=== PATIENT | male | born 1960 | race Caucasian/White ===

== ENCOUNTER 2020-02-26 06:35 | Outpatient (REF) | payer BC, SELFPAY ==
[2020-02-26 11:21] LABS: MANUAL DIFF FLAG NO
[2020-02-26 11:27] LABS: Basophils Percent Auto 0.8 % (0-2); Eosinophils Absolute Auto 0.1 X10*3/uL (0.0-0.4); Eosinophils Percent Auto 1.8 % (0-4); Hematocrit 42.2 % (42-52); Hemoglobin 14.6 g/dl (14.0-18.0); Imm Gran Abs Auto 0.04 X10*3/uL (0.00-0.03); Imm Gran Pct Auto 0.8 % (0.0-0.4); Lymphocytes Absolute Auto 1.5 X10*3/uL (1.2-4.9); Lymphocytes Percent Auto 29.3 % (20-40); Mean Corpuscular HGB Conc 34.6 g/dl (31.0-36.0); Mean Corpuscular Hemoglobin 32.2 pg (27.0-33.0); Monocytes Absolute Auto 0.4 X10*3/uL (0.1-1.2); Monocytes Percent Auto 8.1 % (2-11); Neutrophils Percent Auto 59.2 % (45-73); Platelet Count 184 X10*3/uL (160-400); Red Blood Count 4.54 X10*6/uL (4.60-5.80); Red Cell Distribution Width 12.5 % (11.0-16.0); White Blood Count 5.1 X10*3/uL (4.8-10.8)
[2020-02-26 11:45] LABS: Glucose Urine UA NEG (NEG); Leukocyte Esterase Urine NEG (NEG); Nitrite Urine NEG (NEG); PH 6.5 (5.0-8.0); Specific Gravity - Urine 1.025 (1.005-1.025); Urine Blood NEG (NEG); Urine Ketones NEG (NEG); Urine Protein NEG (NEG-TRACE)
[2020-02-26 11:47] LABS: Appearance Urine CLEAR; Color Urine YELLOW
[2020-02-26 12:06] LABS: Alanine Aminotransferase 55 U/L (0-40); Albumin Level 4.3 g/dL (3.5-5.0); Alkaline Phosphatase 62 U/L (39-117); Aspartate Amino Transferase 30 U/L (5-37); Bilirubin Total 0.8 mg/dL (0.0-1.0); Blood Urea Nitrogen 17 mg/dL (9-16); Calcium 9.1 mg/dL (8.4-10.2); Cholesterol 174 mg/dL; Estimated Glomerular Filt Rate > 60; Glucose Fasting 100 mg/dL (60-99); HDL Cholesterol 27 mg/dL; LDL Cholesterol Calculated 79 mg/dl; Total Protein 6.9 g/dL (6.5-8.0); Triglycerides 340 mg/dL
[2020-02-26 12:14] LABS: Anion Gap 12 (12-20); Carbon Dioxide 28 mmol/L (22-29); Chloride 105 mmol/L (96-108); Potassium 3.9 mmol/l (3.3-5.1); Sodium 141 mmol/L (135-145)
[2020-02-26 12:21] LABS: Thyroid Stimulating Hormone 1.18 mIU/mL (0.32-4.0)
[2020-02-26 12:28] LABS: RBC Urine 0 /HPF (0); WBC Urine 0-2 /HPF (0-4)
== END 2020-02-26 06:36 | disposition home or self-care (01) ==
LOC: HO.HMGCLDS 06:35
PROVIDERS: PCP Internal Medicine; Visit Provider Internal Medicine
DX: Z00.00 Encounter for general adult medical examination without abnormal findings (principal); I10 Essential (primary) hypertension; E78.00 Pure hypercholesterolemia, unspecified; E66.09 Other obesity due to excess calories; Z68.31 Body mass index [BMI] 31.0-31.9, adult
CPT/HCPCS: 36415; 80053; 80061; 81001; 84153; 84443; 85025

== ENCOUNTER 2022-03-26 09:47 | Day surgery (SDC) | payer BC, SELFPAY ==
[2022-03-26 10:19] VITALS: BMI 33.5
[2022-03-26 10:31] VITALS: BP 155/96; PULSE 65; RESP 16; TEMP 36.4; O2SAT 95
[2022-03-26 11:45] VITALS: BP 138/79; PULSE 74; RESP 15; TEMP 36.1; O2SAT 95
--- NOTE | 2022-03-26 11:48 | P.BOP_ITS ---
Brief Operative Note Date of Service: 03/26/22 Pre-op diagnosis: Screening Post-op diagnosis: other (Colon polyp) Procedure: Colonoscopy to the cecum with biopsy and removal of polyp Surgeon: Noe Cunha Anesthesia: MAC Was an Child Protective Investigator used for this Procedure?: No Estimated blood loss (mL): 2.0 Pathology: other (A. Cecal polyp) Condition: stable Disposition: PACU
[2022-03-26 12:00] VITALS: BP 132/82; PULSE 72; RESP 18; TEMP 36.1; O2SAT 98
--- NOTE | 2022-03-26 23:38 | OP_ITS ---
SURGEON: Noe Cunha MD INDICATIONS: Patient presents for evaluation of personal history of tubular adenoma of the colon and need for colorectal cancer screening. Full consent was obtained from him for this, including risks of bleeding and perforation. PREOPERATIVE DIAGNOSIS: Colorectal cancer screening and personal history of tubular adenoma of the colon. POSTOPERATIVE DIAGNOSIS: Colorectal cancer screening and personal history of tubular adenoma of the colon, small colon polyp, diverticulosis, and internal hemorrhoids. PROCEDURE PERFORMED: Colonoscopy to cecum with biopsy and removal of polyp. ESTIMATED BLOOD LOSS: COMPLICATIONS: ANESTHESIA: Preop medications used, monitored anesthesia care. ASSISTANTS: SPECIMENS: DESCRIPTION OF PROCEDURE: The patient was placed in the left lateral decubitus position. A digital rectal exam revealed no abnormalities. An [employer] video pediatric colonoscope was entered into the rectum and advanced easily to the cecum. Once in the cecum, I did identify normal-appearing cecal pouch other than an approximately 3 or 4 mm polyp, which was biopsied and completely removed with cold biopsy forceps. The remainder of the cecum including the appendiceal orifice, was well visualized and appeared normal. The ileocecal valve appeared normal. The scope was slowly withdrawn assessing all mucosal surfaces carefully. Preparation was excellent. I did not visualize any sign of other polyps, colitis, or angiodysplasia. There was a moderate amount of diverticulosis in the sigmoid and descending colon. In the rectum, scope was retroflexed, visualizing small internal hemorrhoids, but no other pathology. The rectal mucosa appeared normal. The scope was straightened and withdrawn from the patient. He tolerated the procedure well and was returned to the recovery area in stable condition. IMPRESSION: 1. Small colon polyp. 2. Diverticulosis. 3. Internal hemorrhoids. PLAN: The results of the biopsies will be checked. I would recommend a repeat colonoscopy in 5 years for further screening purposes. He will otherwise see me on a p.r.n. basis. MD BOB Hernandez/[place] / [id number]
== END 2022-03-26 12:32 | disposition home or self-care (01) ==
PROVIDERS: PCP Internal Medicine; Visit Provider Internal Medicine
PROC: 0DJD8ZZ Inspection of Lower Intestinal Tract, Via Natural or Artificial Opening Endoscopic (ICD-10-PCS; CPT 45378; principal; 2022-03-26 11:50)
DX: Z12.11 Encounter for screening for malignant neoplasm of colon (principal); Z86.010 Personal history of colon polyps; D12.0 Benign neoplasm of cecum; K57.30 Diverticulosis of large intestine without perforation or abscess without bleeding; K64.8 Other hemorrhoids; I10 Essential (primary) hypertension; E78.5 Hyperlipidemia, unspecified; Z87.442 Personal history of urinary calculi; Z79.899 Other long term (current) drug therapy
CPT/HCPCS: 45380; 88305

== ENCOUNTER 2022-05-08 06:33 | Outpatient (REF) | payer BC, SELFPAY ==
[2022-05-08 11:52] LABS: MANUAL DIFF FLAG NO
[2022-05-08 12:23] LABS: Basophils Percent Auto 0.5 % (0-2); Eosinophils Absolute Auto 0.1 X10*3/uL (0.0-0.4); Hematocrit 43.9 % (42.0-52.0); Hemoglobin 14.8 g/dl (14.0-18.0); Imm Gran Abs Auto 0.04 X10*3/uL (0.00-0.03); Imm Gran Pct Auto 0.7 % (0.0-0.4); Lymphocytes Absolute Auto 1.6 X10*3/uL (1.2-4.9); Mean Corpuscular HGB Conc 33.7 g/dl (31.0-36.0); Mean Corpuscular Hemoglobin 31.8 pg (27.0-33.0); Mean Corpuscular Volume 94.2 fL (80.0-98.0); Mean Platelet Volume 10.6 fL (9.4-12.4); Monocytes Absolute Auto 0.4 X10*3/uL (0.1-1.2); Monocytes Percent Auto 7.7 % (2-11); Neutrophils Absolute Auto 3.3 x10*3/uL (2.0-8.3); Neutrophils Percent Auto 60.1 % (45-73); Platelet Count 194 X10*3/uL (160-400); Red Blood Count 4.66 X10*6/uL (4.60-5.80); Red Cell Distribution Width 13.1 % (11.0-16.0); White Blood Count 5.5 X10*3/uL (4.8-10.8)
[2022-05-08 12:52] LABS: Alanine Aminotransferase 57 U/L (0-40); Albumin Level 4.3 g/dL (3.5-5.0); Alkaline Phosphatase 71 U/L (39-117); Anion Gap 10 (12-20); Aspartate Amino Transferase 35 U/L (5-37); Bilirubin Total 0.9 mg/dL (0.0-1.0); Blood Urea Nitrogen 15 mg/dL (9-16); Calcium 9.1 mg/dL (8.4-10.2); Carbon Dioxide 28 mmol/L (22-29); Chloride 106 mmol/L (96-108); Cholesterol 139 mg/dL; Estimated Glomerular Filt Rate > 60; Glucose Fasting 140 mg/dL (60-99); HDL Cholesterol 23 mg/dL; LDL Cholesterol Calculated 44 mg/dl; PSA,Total (Free>4and<10) 2.11 ng/mL (0.00-4.00); Potassium 4.3 mmol/L (3.3-5.1); Sodium 140 mmol/L (135-145); Thyroid Stimulating Hormone 0.81 uIU/mL (0.32-4.0); Total Protein 6.9 g/dL (6.5-8.0); Triglycerides 361 mg/dL
== END 2022-05-08 06:34 | disposition home or self-care (01) ==
LOC: HO.HMGCLDS 06:33
PROVIDERS: PCP Internal Medicine; Visit Provider Internal Medicine
DX: Z00.00 Encounter for general adult medical examination without abnormal findings (principal); Z12.6 Encounter for screening for malignant neoplasm of bladder; E78.00 Pure hypercholesterolemia, unspecified; I10 Essential (primary) hypertension; E66.09 Other obesity due to excess calories
CPT/HCPCS: 36415; 80053; 80061; 82306; 84153; 84443; 85025

== ENCOUNTER → 2022-07-23 10:47 | Outpatient (BNVA) | payer BC, SELFPAY | PROVIDERS: PCP Internal Medicine; Referring Provider Internal Medicine; Visit Provider Internal Medicine | DX: R94.31 Abnormal electrocardiogram [ECG] [EKG] (principal); I10 Essential (primary) hypertension; E78.00 Pure hypercholesterolemia, unspecified | CPT/HCPCS: 93005 ==

== ENCOUNTER 2022-08-03 06:25 | Outpatient (REF) | payer BC, SELFPAY ==
[2022-08-03 12:16] LABS: Anion Gap 14 (12-20); Blood Urea Nitrogen 21 mg/dL (9-16); Carbon Dioxide 24 mmol/L (22-29); Chloride 105 mmol/L (96-108); Estimated Glomerular Filt Rate > 60; Glucose Random 90 mg/dL (60-115); Sodium 139 mmol/L (135-145)
== END 2022-08-03 06:26 | disposition home or self-care (01) ==
LOC: HO.HMGCLDS 06:25
PROVIDERS: PCP Internal Medicine; Visit Provider Internal Medicine
DX: I10 Essential (primary) hypertension (principal)
CPT/HCPCS: 36415; 80048

== ENCOUNTER → 2022-08-06 07:36 | Outpatient (REF) | payer BC, SELFPAY ==
--- NOTE | 2022-08-06 07:59 | CA_ITS ---
Transthoracic Echocardiogram Patient (Last, First, Middle): Domenic Guillen C Gender: Male Date of : 1960 Age: 61 Procedure Date: 08/06/2022 Procedure Type: Transthoracic Echocardiogram Location: OP Height: 180. cm Weight: 102.51 kg BSA: 2.22 m2 Heart Rate: 57 bpm BP: 130 / 80 mmHg Sales And Service Specialist: CORNELL Referring MD: Milan Pastor MD Symptoms: R94.31 - Abnormal electrocardiogram [ECG] [EKG] Study Quality: Adequate ECG Rhythm: Sinus Conclusions: - The left ventricular systolic function is normal. The visually estimated ejection fraction is between 65-70%. - Vpyt-hf-iopabaub left ventricular hypertrophy; mostly concentric but more prominent in the septum. - No obvious valvular pathology seen on this study. Findings Left Ventricle Normal left ventricular cavity size. The left ventricular systolic function is normal. The visually estimated ejection fraction is between 65-70%. There is no evidence of regional wall motion abnormalities. Diastolic function is normal for age. Otub-gd-nywufgdt left ventricular hypertrophy; mostly concentric but more prominent in the septum. Right Ventricle Normal right ventricular cavity size and systolic function. Atria Both atria are normal in size. Aortic Valve There is a normal trileaflet aortic valve. There is mild calcification of the aortic valve. There is no aortic valve stenosis. There is no aortic valve regurgitation. Mitral Valve The mitral valve appears normal. There is no mitral valve regurgitation. There is no mitral valve stenosis. Pulmonic Valve The pulmonic valve is likely normal. Tricuspid Valve Normal tricuspid valve structure. There is trace tricuspid valve regurgitation. There is no evidence of pulmonary hypertension. Great Vessels The asc aorta is normal in size. Venous The inferior vena cava was not well visualized. The inferior vena cava is normal in size. Pericardium/Pleural There is no evidence of pericardial effusion. Prior Study Comparison No prior study available for comparison. Recommendations, Care & Conclusions No obvious valvular pathology seen on this study. Measurements 2D Linear Measurements IVSd: 1.62 0.6-0.9/0.6-1.0 cm LVIDd: 5.10 3.9-5.3/4.2-5.9 cm LVIDd Index: 2.30 2.4-3.2/2.2-3.1 cm/m2 LVIDs: 2.58 2.0-3.6 cm LVPWd: 1.19 0.7-1.1 cm LA Diam: 3.80 2.7-3.8/3.0-4.0 cm LAIDs Index: 1.71 1.5-2.3 cm/m2 LV Mass: 376.75 67-162/88-224 g LV Mass Index: 169.71 43-95/49-115 g/m2 LVOT Diam: 2.10 3.0+(-)1.3 cm 2D Systolic Function EF 4C: 61.00 >55% EF 2C: 59.20 >55% EF BiP: 60.00 >55% Mitral Valve MV Pk E: 0.57 MV PK A: 0.59 MV Decel Time: 330.00 E/A: 1.00 E'Lateral: 7.07 E'Medial: 5.55 E/E' Med: 10.20 E/E' Lat: 8.00 PHT: 97.00 MVA PHT: 2.27 Decel Davis: 1.71 Aortic Valve AoV Pk Sesar: 1.45 AoV Mn Sesar: 1.02 AoV VTI: 0.28 AoV Pk Grad: 8.00 Aov Mn Grad: 5.00 MANPREET Cont.VTI: 2.96 LVOT LVOT Pk Sesar: 1.37 LVOT Mn Sesar: 0.88 LVOT VTI: 0.24 LVOT Pk Grad: 8.00 LVOT Mn Grad: 4.00 LVOT Diam: 2.10 LVOT Area: 3.46 Diastolic Function MV Pk E: 0.57 MV Pk A: 0.59 E/A: 1.00 E'Medial: 5.55 E/E' Med: 10.20 E' Laterial: 7.07 E/E' Lat: 8.00 Right Ventricle TAPSE (mm): 19.80 TVS' Sesar: 16.40 Tricuspid Valve TR Pk Sesar: 1.59 TR Pk Grad: 10.00 Great Vessels Aorta Sinus of Valsalva: 3.60 2.0-3.5 cm Ao Asc: 3.70 2.1-3.4 cm Pulmonary Valve PV Pk Sesar: 1.24 Peak PV Grad: 6.00 Updated in Other Vendor System with Status of Final Milan Pastor MD electronically signed on 08/06/2022 11:59:11 AM with status of Final
== END ==
LOC: HO.CARD 07:36
PROVIDERS: Visit Provider Internal Medicine
DX: I10 Essential (primary) hypertension (principal); E78.00 Pure hypercholesterolemia, unspecified; R94.31 Abnormal electrocardiogram [ECG] [EKG]
CPT/HCPCS: 93306

== ENCOUNTER → 2022-11-01 10:53 | Outpatient (BNVA) | payer BC, SELFPAY | PROVIDERS: PCP Internal Medicine; Referring Provider Internal Medicine; Visit Provider Internal Medicine ==

== ENCOUNTER → 2022-12-06 14:59 | Outpatient (REF) | payer BC, SELFPAY | LOC: HO.SL 14:59 | PROVIDERS: PCP Internal Medicine; Visit Provider Internal Medicine | DX: G47.33 Obstructive sleep apnea (adult) (pediatric) (principal) | CPT/HCPCS: 95806 ==

== ENCOUNTER → 2022-12-06 15:19 | Outpatient (BNV) | payer BC, SELFPAY | PROVIDERS: PCP Internal Medicine; Visit Provider Internal Medicine | DX: R06.83 Snoring (principal) | CPT/HCPCS: 95806 ==

== ENCOUNTER 2023-02-27 08:03 | Outpatient (REF) | payer BC, SELFPAY ==
--- NOTE | ~2023-02-27 | XR_ITS ---
EXAMINATION: XR ABDOMEN COMPLETE CLINICAL INDICATION: Periumbilical abdominal pain COMPARISON: None available. TECHNIQUE: 2 views of the abdomen. FINDINGS: Nonobstructing bowel pattern. Mild colonic stool is noted. No free air is seen. No suspicious calcification. XR/XR abdomen min 2V IMPRESSION: Nonobstructive bowel pattern.
[2023-02-27 11:27] LABS: MANUAL DIFF FLAG NO
[2023-02-27 11:40] LABS: Basophils Percent Auto 0.6 % (0-2); Eosinophils Absolute Auto 0.1 X10*3/uL (0.0-0.4); Eosinophils Percent Auto 1.8 % (0-4); Hematocrit 42.5 % (42.0-52.0); Hemoglobin 14.5 g/dl (14.0-18.0); Imm Gran Abs Auto 0.05 X10*3/uL (0.00-0.03); Lymphocytes Absolute Auto 1.6 X10*3/uL (1.2-4.9); Lymphocytes Percent Auto 31.7 % (20-40); Mean Corpuscular HGB Conc 34.1 g/dl (31.0-36.0); Mean Corpuscular Hemoglobin 31.9 pg (27.0-33.0); Mean Corpuscular Volume 93.6 fL (80.0-98.0); Mean Platelet Volume 10.6 fL (9.4-12.4); Monocytes Absolute Auto 0.4 X10*3/uL (0.1-1.2); Monocytes Percent Auto 8.5 % (2-11); Neutrophils Absolute Auto 2.8 x10*3/uL (2.0-8.3); Neutrophils Percent Auto 56.4 % (45-73); Platelet Count 182 X10*3/uL (160-400); Red Blood Count 4.54 X10*6/uL (4.60-5.80); Red Cell Distribution Width 13.1 % (11.0-16.0)
[2023-02-27 12:11] LABS: Alanine Aminotransferase 35 U/L (0-40); Albumin Level 4.2 g/dL (3.5-5.0); Alkaline Phosphatase 74 U/L (39-117); Anion Gap 13 (12-20); Aspartate Amino Transferase 25 U/L (5-37); Bilirubin Total 0.5 mg/dL (0.0-1.0); Blood Urea Nitrogen 18 mg/dL (9-16); C Reactive Protein 0.28 mg/dL (< or = 0.50); Calcium 9.4 mg/dL (8.4-10.2); Carbon Dioxide 25 mmol/L (22-29); Chloride 106 mmol/L (96-108); Cholesterol 157 mg/dL (<200); Estimated Glomerular Filt Rate > 60; Glucose Fasting 114 mg/dL (60-99); HDL Cholesterol 21 mg/dL (>40); Potassium 4.1 mmol/L (3.3-5.1); Sodium 140 mmol/L (135-145); Total Protein 7.2 g/dL (6.5-8.0); Triglycerides 622 mg/dL (<150)
[2023-02-27 12:17] LABS: Vitamin D 25-OH Total 46.5 ng/mL (>30)
== END 2023-02-27 08:04 | disposition home or self-care (01) ==
LOC: HO.CHCLDS 08:03
PROVIDERS: Visit Provider Internal Medicine
DX: R10.33 Periumbilical pain (principal); E78.00 Pure hypercholesterolemia, unspecified; E55.9 Vitamin D deficiency, unspecified; I10 Essential (primary) hypertension
CPT/HCPCS: 36415; 74019; 80053; 80061; 82306; 85025; 86140

== ENCOUNTER 2023-05-08 08:16 | Outpatient (AMB) | payer BC, SELFPAY ==
--- NOTE | 2023-05-08 08:28 | MHC.OFFVIS ---
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 States his pain is mainly on his by his achilles and heel. States he has tightness and feels numb Patient reports pain started about 3 months ago and improve since. 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 Allergies niacin Allergy (Verified 05/08/23 08:32) Unknown Medication List - Last Reconciled 05/08/23 by Dinora Godinez MD cholecalciferol (vitamin D3) 25 mcg PO DAILY hydrochlorothiazide 25 mg PO DAILY lisinopril 60 mg PO DAILY rosuvastatin (Crestor) 20 mg PO DAILY HPI HPI Comments History of Present Illness Details Three months spontaneous onset of left ankle pain. He used to walk or go to the gym, but denies any new in his routine. He had weird sensation or numbness on the left ankle in pain. He started doing stretches which has helped so far. Still has that we are sensation but has very little pain except for some flare ups. 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 MSK: Able to dorsiflex and extend big toe, left, but with pain on the ankle. Strength still 5/5. No calf tenderness. No signs of tear. Achillis is actually not tender, warm or swollen. No tenderness in plantar fascia. No tenderness on or around malleoli. Neurological: Neurologic examination of the upper and lower extremities was nonfocal with intact sensation, muscle stretch reflexes and without focal motor deficits . Kay?s negative bilaterally. Babinski was down going bilaterally. Clonus was negative. Gait is non-antalgic without loss of balance. Able to stand on toes and heels unassisted. Results Reviewed Results Reviewed: I independently reviewed the results of the following: Left ankle x-ray done today showed heel spur towards Achillis tendon; await official reading. I reviewed records from the following: Cardiology Assessment & Plan Assessment & Plan (1) Achilles tendinitis: Code(s): M76.60 - Achilles tendinitis, unspecified leg Qualifiers: Laterality: left Qualified Code(s): M76.62 - Achilles tendinitis, left leg (2) Heel spur: Code(s): M77.30 - Calcaneal spur, unspecified foot Qualifiers: Laterality: left Qualified Code(s): M77.32 - Calcaneal spur, left foot Plan Symptoms suggested of Achillis tendinitis. Question heel spur as seen on x-ray, await official reading. Symptoms already improved. May continue to ice, use ice bucket, 50 minutes, when having flare ups. We talked about stretches that he can do safely at home. Do not work through pain. Assessment and plan discussed with patient, and patient was agreeable. All questions were answered thoroughly. Call if pain becomes severe again. Dinora Godinez MD, AVANI Board Certified, [place] Board [employer] Medicine and Rehabilitation (ABPMR) Board Certified, [place] Board of Electrodiagnostic Medicine (ABEM) Orders: Orders XR ankle LT 2V Today M25.572 - Pain in left ankle and joints of left foot Coding Level of Care Code New Pt Level 3 (81576) Diagnoses Achilles tendinitis of left lower extremity M76.62 Laterality: left Calcaneal spur of left foot M77.32 Laterality: left
[2023-05-08 08:29] VITALS: BMI 33.5
== END 2023-05-08 08:54 | disposition home or self-care (01) ==
PROVIDERS: PCP Internal Medicine; Visit Provider Physical Medicine & Rehabilitation
DX: M76.62 Achilles tendinitis, left leg (principal); M77.32 Calcaneal spur, left foot
CPT/HCPCS: 99203

== ENCOUNTER 2023-05-08 11:40 | Outpatient (REF) | payer BC, SELFPAY ==
--- NOTE | ~2023-05-08 | XR_ITS ---
EXAMINATION: XR ANKLE, LEFT CLINICAL INFORMATION: Left ankle and foot pain. COMPARISON: None available. TECHNIQUE: AP, lateral, and mortise views of the left ankle. FINDINGS: No acute fracture or dislocation. No joint space narrowing or marginal osteophytes. No osseous erosion. Ankle mortise is maintained. Large dorsal calcaneal enthesophyte. No concerning lytic or blastic osseous lesion. XR/XR ankle LT 2V IMPRESSION: 1. No acute osseous abnormality. 2. Large dorsal calcaneal spur.
== END 2023-05-08 11:41 | disposition home or self-care (01) ==
LOC: HO.HOSX 11:40
PROVIDERS: Visit Provider Physical Medicine & Rehabilitation
DX: M76.62 Achilles tendinitis, left leg (principal); M77.32 Calcaneal spur, left foot
CPT/HCPCS: 73600

== ENCOUNTER 2023-10-16 08:38 | Outpatient (REF) | payer BC, SELFPAY ==
--- NOTE | ~2023-10-16 | XR_ITS ---
EXAMINATION: XR BILATERAL SHOULDERS CLINICAL INFORMATION: Pain. COMPARISON: None available. TECHNIQUE: 2 views of each shoulder. FINDINGS: Right Shoulder: Advanced degenerative changes in the right acromioclavicular joint with joint space narrowing and hypertrophic change. Glenohumeral alignment is preserved. No abnormal soft tissue calcifications identified adjacent to the humeral head. Left Shoulder: Moderate degenerative changes in the left acromioclavicular joint. Glenohumeral alignment is preserved. Mild hypertrophic change along the superolateral aspect of the left humeral head. XR/XR shoulder LT min 2V IMPRESSION: 1. Advanced degenerative changes right acromioclavicular joint. 2. Moderate degenerative changes left acromioclavicular joint.
--- NOTE | ~2023-10-16 | XR_ITS ---
EXAMINATION: XR BILATERAL SHOULDERS CLINICAL INFORMATION: Pain. COMPARISON: None available. TECHNIQUE: 2 views of each shoulder. FINDINGS: Right Shoulder: Advanced degenerative changes in the right acromioclavicular joint with joint space narrowing and hypertrophic change. Glenohumeral alignment is preserved. No abnormal soft tissue calcifications identified adjacent to the humeral head. Left Shoulder: Moderate degenerative changes in the left acromioclavicular joint. Glenohumeral alignment is preserved. Mild hypertrophic change along the superolateral aspect of the left humeral head. XR/XR shoulder RT min 2V IMPRESSION: 1. Advanced degenerative changes right acromioclavicular joint. 2. Moderate degenerative changes left acromioclavicular joint.
== END 2023-10-16 08:39 | disposition home or self-care (01) ==
LOC: HO.HMGCX 08:38
PROVIDERS: PCP Internal Medicine; Visit Provider Physical Medicine & Rehabilitation
DX: M25.512 Pain in left shoulder (principal); M25.511 Pain in right shoulder
CPT/HCPCS: 73030

== ENCOUNTER 2023-10-18 07:01 | Outpatient (REF) | payer BC, SELFPAY ==
[2023-10-18 11:08] LABS: Alanine Aminotransferase 72 U/L (0-40); Albumin Level 4.3 g/dL (3.5-5.0); Alkaline Phosphatase 66 U/L (39-117); Anion Gap 11 (12-20); Aspartate Amino Transferase 65 U/L (5-37); Bilirubin Total 0.6 mg/dL (0.0-1.0); Blood Urea Nitrogen 20 mg/dL (9-16); Calcium 9.7 mg/dL (8.4-10.2); Carbon Dioxide 29 mmol/L (22-29); Chloride 106 mmol/L (96-108); Cholesterol 127 mg/dL (<200); Estimated Glomerular Filt Rate > 60; Glucose Fasting 183 mg/dL (60-99); HDL Cholesterol 25 mg/dL (>40); LDL Cholesterol Calculated 27 mg/dL (<100); Sodium 142 mmol/L (135-145); Total Protein 7.5 g/dL (6.5-8.0); Triglycerides 379 mg/dL (<150)
[2023-10-18 11:30] LABS: Thyroid Stimulating Hormone 0.96 uIU/mL (0.32-4.0)
== END 2023-10-18 07:02 | disposition home or self-care (01) ==
LOC: HO.HMGCLDS 07:01
PROVIDERS: PCP Internal Medicine; Visit Provider Internal Medicine
DX: I10 Essential (primary) hypertension (principal); E78.00 Pure hypercholesterolemia, unspecified; E55.9 Vitamin D deficiency, unspecified; E66.09 Other obesity due to excess calories
CPT/HCPCS: 36415; 80053; 80061; 84443

== ENCOUNTER 2024-01-16 06:45 | Outpatient (REF) | payer BC, SELFPAY ==
[2024-01-16 10:09] LABS: Appearance Urine Turbid; Color Urine Yellow; Glucose Urine UA >=1000 mg/dL (Negative); Leukocyte Esterase Urine Negative (Negative); Nitrite Urine Negative (Negative); PH 5.5 (5.0-9.0); Specific Gravity - Urine >= 1.030 (1.005-1.025); UMIC TRIGGER UA YES; Urine Blood Negative (Negative); Urine Ketones Negative (Negative); Urine Protein Negative (Neg-Trace)
[2024-01-16 10:14] LABS: Bacteria Urine None Seen (None Seen); Hyaline Casts Urine 0-2 /LPF (0-2); RBC Urine 0-2 /HPF (0-2); Squamous Epithelial Cell Urine 0-2 /HPF (0-2); WBC Urine 0-5 /HPF (0-5)
[2024-01-16 10:20] LABS: Estimated Average Glucose 160 mg/dL; Hemoglobin A1c % 7.2 % (<6.0)
[2024-01-16 10:25] LABS: Alanine Aminotransferase 47 U/L (0-40); Albumin Level 4.1 g/dL (3.5-5.0); Alkaline Phosphatase 70 U/L (39-117); Anion Gap 13 (12-20); Aspartate Amino Transferase 35 U/L (5-37); Bilirubin Total 0.6 mg/dL (0.0-1.0); Blood Urea Nitrogen 17 mg/dL (9-16); Calcium 9.8 mg/dL (8.4-10.2); Carbon Dioxide 25 mmol/L (22-29); Chloride 105 mmol/L (96-108); Cholesterol 151 mg/dL (<200); Estimated Glomerular Filt Rate > 60; Glucose Fasting 255 mg/dL (60-99); HDL Cholesterol 23 mg/dL (>40); Potassium 4.1 mmol/L (3.3-5.1); Sodium 139 mmol/L (135-145); Total Protein 7.2 g/dL (6.5-8.0); Triglycerides 748 mg/dL (<150)
[2024-01-16 10:38] LABS: Creatinine Urine 244.86 mg/dL; Microalbum/Creatinine Ratio Ur 6.1 ug/mg cr (<30)
== END 2024-01-16 06:46 | disposition home or self-care (01) ==
LOC: HO.HMGCLDS 06:45
PROVIDERS: PCP Internal Medicine; Visit Provider Internal Medicine
DX: I10 Essential (primary) hypertension (principal); E78.00 Pure hypercholesterolemia, unspecified; E78.1 Pure hyperglyceridemia; E55.9 Vitamin D deficiency, unspecified; R73.01 Impaired fasting glucose; E66.09 Other obesity due to excess calories
CPT/HCPCS: 36415; 80053; 80061; 81001; 82043; 82570; 83036

== ENCOUNTER 2024-01-20 10:37 | Outpatient (AMB) | payer BC, SELFPAY ==
--- NOTE | 2024-01-20 10:39 | MHC.OFFVIS ---
Vital Signs 01/20/24 10:40 Height 5 ft 11 in Weight 249 lb 1.957 oz BMI 34.7 BP 132/68 Blood Pressure Location Lt brachial Position Sitting Pulse 64 Pulse Source Monitor Intake Visit Reasons: 1 yr fu Allergies niacin Allergy (Verified 05/08/23 08:32) Unknown Medication List - Last Reconciled 01/20/24 by Milan Pastor MD cholecalciferol (vitamin D3) 25 mcg PO DAILY hydrochlorothiazide 25 mg PO DAILY lisinopril 40 mg PO DAILY rosuvastatin (Crestor) 40 mg PO DAILY HPI Comments Details: Domenic returns for follow-up regarding coronary artery disease. He has various risk factors including obesity, hypertension, dyslipidemia. He underwent further workup because of risk factors and coronary CTA had shown hiqj-si-ohfxkjgp coronary disease. Overall, he states he is feeling fine. He does not have any angina or in fact any cardiac symptoms. Weight is actually slightly higher than in the past. Otherwise, he seems to be getting along fine. 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 Review of Systems Const Denies weakness ENT Denies dizziness Card Denies chest pain, Denies chest pain with activity, Denies syncope, Denies rapid heart rate, Denies pedal edema, Denies edema, Denies leg edema, Denies lightheadedness, Denies palpitations, Denies dyspnea, Denies dyspnea on exertion and Denies orthopnea Resp Denies cough, Denies dyspnea and Denies dyspnea on exertion GI Denies hematochezia and Denies change in stool character Musc Denies abnormal gait, Denies muscle cramps, Denies muscle weakness, Denies numbness, Denies radiating pain into limb and Denies tingling Neuro Denies abnormal gait, Denies dizziness, Denies syncope, Denies numbness, Denies tingling and Denies weakness Endo Denies palpitations Physical Exam Vital Signs: Last Vital Signs Pulse 64 01/20/24 10:40 BP 132/68 01/20/24 10:40 BMI result Body Mass Index 34.7 Const General: comfortable and no acute distress Orientation/consciousness: patient oriented x3 HEENT Other: Unremarkable Head: Yes normal to inspection Neck Neck: Yes normal visual inspection Chest Chest palpation & inspection: normal inspection of the chest Resp Auscultation: clear to auscultation bilaterally Cardio Palpation: normal PMI Heart sounds: S1 normal heart sound present, S2 normal heart sound present, no gallops, no murmurs and no rubs GI Palpation (GI): Soft to palpation Back/Spine/Pelvis Other: unremarkable Skin General skin exam: no rashes or lesions noted Neuro General: patient oriented x3 Extrem General: Yes normal to inspection Psych Mental Status: mental status grossly normal Office Procedures EKG Details: EKG with underlying sinus rhythm at 64/Min; nonspecific ST-T changes; incomplete right bundle-branch block; normal HI and corrected QT; no significant changes compared to prior. [id number], Complete Assessment & Plan Assessment & Plan (1) Atherosclerotic cardiovascular disease: Code(s): I25.10 - Atherosclerotic heart disease of [place] coronary artery without angina pectoris Category: Medical (2) HTN (hypertension): Code(s): I10 - Essential (primary) hypertension Category: Medical (3) Other and unspecified hyperlipidemia: Code(s): E78.5 - Hyperlipidemia, unspecified Category: Medical (4) Morbid obesity: Code(s): E66.01 - Morbid (severe) obesity due to excess calories Category: Medical Plan Cardiac studies reviewed. EKG shows nonspecific ST-T changes. In the echocardiogram, LVEF 65-70%. Wvkq-ny-kctapouc left ventricular hypertrophy. In the coronary CTA from 2022, diffuse wfyf-fy-qyajbptg coronary disease. Nothing hemodynamically significant. Possible mild LVH also noted. Overall, obesity, hypertension, dyslipidemia, stable coronary disease. Blood pressure stable on the current dose of lisinopril. With regard to dyslipidemia, he has got high triglycerides but LDL within limits. We discussed about this today. There is a large component of obesity causing the high triglycerides. He may remain on statins, but suggest that he be referred to endocrine for further evaluation. Patient states that he will discuss with his own PCP. He also had a sleep study and that does not show any evidence of NONI. He did have significant snoring. Again discussed about weight loss and benefits and he understands and he will try to lose weight. Follow-up in 1 year. In the interim, he will call with concerns. Medications: Changed From rosuvastatin (Crestor) 20 mg PO DAILY 90 tabs 3RF To rosuvastatin (Crestor) 40 mg PO DAILY Coding Level of Care Code Est Pt Level 4 (53370) Diagnoses Atherosclerotic cardiovascular disease I25.10 HTN (hypertension) I10 Other and unspecified hyperlipidemia E78.5 Morbid obesity E66.01 CPT Codes EKG - CPT: 21054-[id number], Complete ([id number])
[2024-01-20 10:40] VITALS: BP 132/68; PULSE 64; BMI 34.7
== END 2024-01-20 11:14 | disposition home or self-care (01) ==
PROVIDERS: PCP Internal Medicine; Visit Provider Internal Medicine
DX: I25.10 Atherosclerotic heart disease of native coronary artery without angina pectoris (principal); I10 Essential (primary) hypertension; E78.5 Hyperlipidemia, unspecified; E66.01 Morbid (severe) obesity due to excess calories
CPT/HCPCS: 93010; 99214

== ENCOUNTER → 2024-01-20 10:37 | Outpatient (BNVA) | payer BC, SELFPAY | PROVIDERS: PCP Internal Medicine; Visit Provider Internal Medicine | DX: I25.10 Atherosclerotic heart disease of native coronary artery without angina pectoris (principal); I10 Essential (primary) hypertension; E78.5 Hyperlipidemia, unspecified; E66.01 Morbid (severe) obesity due to excess calories; Z68.34 Body mass index [BMI] 34.0-34.9, adult; Z79.899 Other long term (current) drug therapy | CPT/HCPCS: 93005 ==

== ENCOUNTER 2024-04-16 07:13 | Outpatient (REF) | payer BC, SELFPAY ==
[2024-04-16 10:11] LABS: Estimated Average Glucose 123 mg/dL; Hemoglobin A1C 137.1295 umol/L; Hemoglobin A1c % 5.9 % (<6.0); Total Hemoglobin (HGBA1C) 3366.8728 umol/L
[2024-04-16 10:14] LABS: Appearance Urine Clear; Color Urine Yellow; Glucose Urine UA Negative (Negative); Leukocyte Esterase Urine Negative (Negative); Nitrite Urine Negative (Negative); PH 5.5 (5.0-9.0); Specific Gravity - Urine 1.025 (1.005-1.025); Urine Blood Negative (Negative); Urine Ketones Negative (Negative); Urine Protein Negative (Neg-Trace)
[2024-04-16 10:23] LABS: Alanine Aminotransferase 57 U/L (0-40); Albumin Level 4.3 g/dL (3.5-5.0); Alkaline Phosphatase 44 U/L (39-117); Anion Gap 12 (12-20); Aspartate Amino Transferase 44 U/L (5-37); Bilirubin Total 0.4 mg/dL (0.0-1.0); Blood Urea Nitrogen 21 mg/dL (9-16); Calcium 9.7 mg/dL (8.4-10.2); Carbon Dioxide 28 mmol/L (22-29); Chloride 106 mmol/L (96-108); Cholesterol 122 mg/dL (<200); Estimated Glomerular Filt Rate > 60; Glucose Fasting 123 mg/dL (60-99); HDL Cholesterol 26 mg/dL (>40); LDL Cholesterol Calculated 50 mg/dL (<100); Potassium 4.1 mmol/L (3.3-5.1); Sodium 142 mmol/L (135-145); Triglycerides 230 mg/dL (<150)
[2024-04-16 10:33] LABS: Bacteria Urine None Seen (None Seen); Hyaline Casts Urine 0-2 /LPF (0-2); RBC Urine 0-2 /HPF (0-2); Squamous Epithelial Cell Urine 0-2 /HPF (0-2); WBC Urine 0-5 /HPF (0-5)
== END 2024-04-16 07:14 | disposition home or self-care (01) ==
LOC: HO.HMGCLDS 07:13
PROVIDERS: PCP Internal Medicine; Visit Provider Internal Medicine
DX: E11.9 Type 2 diabetes mellitus without complications (principal); E78.00 Pure hypercholesterolemia, unspecified; I10 Essential (primary) hypertension; E78.1 Pure hyperglyceridemia
CPT/HCPCS: 36415; 80053; 80061; 81001; 83036

== ENCOUNTER 2024-10-08 06:12 | Outpatient (REF) | payer BC, SELFPAY ==
--- OUTSIDE RECORDS SUMMARY | 2024-10-08 06:14 | XMS_ITS | Continuity of Care Document ---
Author Name [facility] Organization [facility] Care Team Providers Care Automotive Teacher Name Role Phone [facility] Unavailable Unavailable Immunizations Combined list of available immunizations from the Department of Defense and Veterans Affairs facilities. Immunization Series Date Given Administered By Site Reaction Lot Number CVX Code Drug Tube Drawer Status Comments Source influenza, injectable, quadrivalent- pf 2021 [id number] Se[employer] complet ed influenza , injectabl e, quadrival ent-pf 03/07/22 Given Ambulat ory Pharmac y COVID Vaccine Moderna 2021 [id number] 207 complet ed COVID Vaccine Moderna 10/06/21 Given Ambulat ory Pharmac y typhoid Vi capsular polysaccharid e vac 2021 [id number] 101 sanofi pasteur complet ed typhoid Vi capsular polysacch aride vac 07/18/21 Given Ambulat ory Pharmac y tetanus, diphtheria, acellular pertu is 2021 [id number] 115 sanofi pasteur complet ed tetanus, diphtheri a, acellular pertussis 07/18/21 Given Ambulat ory Pharmac y meningococcal A,C,Y,W-135 (MCV4P) 2021 [id number] 114 sanofi pasteur complet ed meningoco ccal A,C,Y,W-1 35 (MCV4P) 07/18/21 Given Ambulat ory Pharmac y COVID Vaccine Moderna 2020 [id number] 207 complet ed COVID Vaccine Moderna 05/11/21 Given Ambulat ory Pharmac y influenza, seasonal, injectable 2020 [id number] 141 sanofi pasteur complet ed influenza , seasonal, injectabl e 03/10/21 Given Ambulat ory Pharmac y COVID Vaccine Moderna 2020 [id number] 207 complet ed COVID Vaccine Moderna 07/22/20 Given Ambulat ory Pharmac y COVID Vaccine Moderna 2020 [id number] 207 complet ed COVID Vaccine Moderna 06/20/20 Given Ambulat ory Pharmac y influenza, seasonal, injectable 2019 [id number] 141 Se[employer] complet ed influenza , seasonal, injectabl e 03/05/20 Given Ambulat ory Pharmac y typhoid Vi capsular polysaccharid e vac 2019 [id number] 101 sanofi pasteur complet ed typhoid Vi capsular polysacch aride vac 07/16/19 Given Ambulat ory Pharmac y influenza, seasonal, injectable 2018 [id number] 141 Se[employer]irus complet ed influenza , seasonal, injectabl e 03/25/19 Given Ambulat ory Pharmac y influenza, seasonal, injectable 2017 [id number] 141 Se[employer] complet ed influenza , seasonal, injectabl e 03/07/18 Given Ambulat ory Pharmac y typhoid Vi capsular polysaccharid e vac 2017 [id number] 101 sanofi pasteur complet ed typhoid Vi capsular polysacch aride vac 07/26/17 Given Ambulat ory Pharmac y influenza, seasonal, injectable 2016 [id number] 141 sanofi pasteur complet ed influenza , seasonal, injectabl e 03/19/17 Given Ambulat ory Pharmac y meningococcal A,C,Y,W-135 (MCV4P) 2016 [id number] 114 sanofi pasteur complet ed meningoco ccal A,C,Y,W-1 35 (MCV4P) 06/29/16 Given Ambulat ory Pharmac y influenza, seasonal, injectable 2015 [id number] 141 sanofi pasteur complet ed influenza , seasonal, injectabl e 02/17/16 Given Ambulat ory Pharmac y typhoid Vi capsular polysaccharid e vac 2015 [id number] 101 sanofi pasteur complet ed typhoid Vi capsular polysacch aride vac 07/30/15 Given Ambulat ory Pharmac y influenza, seasonal, injectable 2014 [id number] 141 sanofi pasteur complet ed influenza , seasonal, injectabl e 02/22/15 Given Ambulat ory Pharmac y influenza, seasonal, injectable 2013 [id number] 141 [employer] complet ed influenza , seasonal, injectabl e 01/31/14 Given Ambulat ory Pharmac y typhoid Vi capsular polysaccharid e vac 2013 [id number] 101 sanofi pasteur complet ed typhoid Vi capsular polysacch aride vac 07/05/13 Given Ambulat ory Pharmac y yellow fever vaccine 2012 [id number] 37 sanofi pasteur complet ed yellow fever vaccine 05/01/13 Given Ambulat ory Pharmac y measles/mumps /rubella virus vaccine 2012 [id number] [employer] complet ed measles/m umps/rube lla virus vaccine 05/01/13 Given Ambulat ory Pharmac y influenza, seasonal, injectable-pf 2012 [id number] 140 Nov[employer]is [employer] ls complet ed influenza , seasonal, injectabl e-pf 04/08/13 Given Ambulat ory Pharmac y influenza, seasonal, injectable-pf 2011 [id number] 140 [employer] complet ed influenza , seasonal, injectabl e-pf 03/30/12 Given Ambulat ory Pharmac y tetanus, diphtheria, acellular pertu is 2011 [id number] 115 sanofi pasteur complet ed tetanus, diphtheri a, acellular pertussis 12/22/11 Given Ambulat ory Pharmac y typhoid Vi capsular polysaccharid e vac 2011 [id number] 101 sanofi pasteur complet ed typhoid Vi capsular polysacch aride vac 07/01/11 Given Ambulat ory Pharmac y meningococcal A,C,Y,W-135 (MCV4P) 2011 [id number] 114 sanofi pasteur complet ed meningoco ccal A,C,Y,W-1 35 (MCV4P) 07/01/11 Given Ambulat ory Pharmac y influenza, seasonal, injectable-pf 2010 [id number] 140 [employer] complet ed influenza , seasonal, injectabl e-pf 02/25/11 Given Ambulat ory Pharmac y hepatitis A-hepatitis B vaccine 2010 [id number] 104 Gl[employer]oSmithK[employer] ne complet ed hepatitis A-hepatit is B vaccine 06/03/10 Given Ambulat ory Pharmac y hepatitis A-hepatitis B vaccine 2010 [id number] 4BA 104 GlaxoSmithK[employer] ne complet ed hepatitis A-hepatit is B vaccine 06/03/10 Given Ambulat ory Pharmac y influenza virus vaccine,split 2009 [id number] 15 [employer] complet ed influenza virus vaccine,s plit 03/09/10 Given Ambulat ory Pharmac y hepatitis B adult vaccine 2009 [id number] 4AA 43 GlaxoSmithKli ne complet ed hepatitis B adult vaccine 01/03/10 Given Ambulat ory Pharmac y hepatitis B adult vaccine 2009 [id number] [id number] 43 GlaxoSmithKli ne complet ed hepatitis B adult vaccine 12/03/09 Given Ambulat ory Pharmac y typhoid Vi capsular polysaccharid e vac 2009 [id number] 101 sanofi pasteur complet ed typhoid Vi capsular polysacch aride vac 06/23/09 Given Ambulat ory Pharmac y Novel influenza-H1N 1-09, injectable 2009 [id number] 127 Novartis Pharm[employer] ls complet ed Novel influenza -V5B7-02, injectabl e 06/19/09 Given Ambulat ory Pharmac y influenza virus vaccine, live 2008 [id number] 111 [employer] comple t ed influenza virus vaccine, live 03/08/09 Given Ambulat ory Pharmac y influenza virus vaccine,split 2007 [id number] 15 GlaxoSmithKli ne complet ed influenza virus vaccine,s plit 03/27/08 Given Ambulat ory Pharmac y typhoid Vi capsular polysaccharid e vac 2007 [id number] 101 sanofi pasteur complet ed typhoid Vi capsular polysacch aride vac 06/28/07 Given Ambulat ory Pharmac y influenza virus vaccine, whole virus 2006 16 complet ed influenza virus vaccine, whole virus 04/27/07 Given Ambulat ory Pharmac y influenza virus vaccine,split 2006 15 complet ed influenza virus vaccine,s plit 04/27/07 Given Ambulat ory Pharmac y meningococcal polysaccharid e (MPSV4) 2006 [id number] 32 sanofi pasteur complet ed meningoco ccal polysacch aride (MPSV4) 09/04/06 Given Ambulat ory Pharmac y influenza virus vaccine,split 2005 [id number] 15 Unknown complet ed influenza virus vaccine,s plit 05/10/06 Given Ambulat ory Pharmac y typhoid vaccine, inactivated 2005 [id number] 101 sanofi pasteur complet ed typhoid vaccine, inactivat ed 08/22/05 Given Ambulat ory Pharmac y influenza virus vaccine,split 2005 [id number] 15 sanofi pasteur complet ed influenza virus vaccine,s plit 06/12/05 Given Ambulat ory Pharmac y influenza virus vaccine, live 2004 [id number] 111 [employer] comple t ed influenza virus vaccine, live 06/03/04 Given Ambulat ory Pharmac y tetanus-dipht h toxoids (Td) adult/adol 2003 [id number] 09 sanofi pasteur complet ed tetanus-d iphth toxoids (Td) adult/ado l 11/03/03 Given Ambulat ory Pharmac y yellow fever vaccine 2003 [id number] 37 sanofi pasteur complet ed yellow fever vaccine 07/31/03 Given Ambulat ory Pharmac y typhoid vaccine, inactivated 2003 [id number] 101 sanofi pasteur complet ed typhoid vaccine, inactivat ed 07/31/03 Given Ambulat ory Pharmac y anthrax vaccine 2002 [id number] 24 [employer] complet ed anthrax vaccine 05/05/03 Given Ambulat ory Pharmac y influenza virus vaccine, whole virus 2002 [id number] 16 sanofi pasteur complet ed influenza virus vaccine, whole virus 05/05/03 Given Ambulat ory Pharmac y tuberculin purified protein derivative 2002 96 complet ed tuberculi n purified protein derivativ e 02/11/03 Given Ambulat ory Pharmac y anthrax vaccine 2002 [id number] 24 [employer] complet ed anthrax vaccine 09/21/02 Given Ambulat ory Pharmac y tuberculin purified protein derivative 2001 [id number] 96 sanofi pasteur complet ed tuberculi n purified protein derivativ e 03/19/02 Given Ambulat ory Pharmac y influenza virus vaccine, whole virus 2001 [id number] 16 sanofi pasteur complet ed influenza virus vaccine, whole virus 03/19/02 Given Ambulat ory Pharmac y typhoid vaccine, inactivated 2001 [id number] 101 sanofi pasteur complet ed typhoid vaccine, inactivat ed 08/29/01 Given Ambulat ory Pharmac y meningococcal polysaccharid e (MPSV4) 2001 [id number] 32 sanofi pasteur complet ed meningoco ccal polysacch aride (MPSV4) 08/29/01 Given Ambulat ory Pharmac y tuberculin purified protein derivative 2000 [id number] 96 sanofi pasteur complet ed tuberculi n purified protein derivativ e 03/13/01 Given Ambulat ory Pharmac y influenza virus vaccine, whole virus 2000 [id number] 16 [facility] complet ed influenza virus vaccine, whole virus 03/13/01 Given Ambulat ory Pharmac y tuberculin purified protein derivative 2000 [id number] 96 [facility] complet ed tuberculi n purified protein derivativ e 10/12/00 Given Ambulat ory Pharmac y influenza virus vaccine, whole virus 1999 [id number] 16 [facility] complet ed influenza virus vaccine, whole virus 04/28/00 Given Ambulat ory Pharmac y anthrax vaccine 1999 [id number] 24 [employer] complet ed anthrax vaccine 06/05/99 Given Ambulat ory Pharmac y influenza virus vaccine, whole virus [id number] 16 [facility] complet ed influenza virus vaccine, whole virus 04/02/99 Given Ambulat ory Pharmac y anthrax vaccine 1998 [id number] 24 [employer] complet ed anthrax vaccine 01/05/99 Given Ambulat ory Pharmac y anthrax vaccine 1998 [id number] 24 [employer] complet ed anthrax vaccine 12/22/98 Given Ambulat ory Pharmac y anthrax vaccine 1998 [id number] 24 [employer] complet ed anthrax vaccine 12/08/98 Given Ambulat ory Pharmac y tuberculin purified protein derivative 1998 2493-11 96 [facility] complet ed tuberculi n purified protein derivativ e 09/24/98 Given Ambulat ory Pharmac y measles/mumps /rubella virus vaccine 1997 [id number] 03 [employer] complet ed measles/m umps/rube lla virus vaccine 04/19/98 Given Ambulat ory Pharmac y influenza virus vaccine, whole virus [id number] 16 [facility] complet ed influenza virus vaccine, whole virus 04/03/98 Given Ambulat ory Pharmac y tuberculin purified protein derivative 1997 2480-11 96 [facility] complet ed tuberculi n purified protein derivativ e 09/28/97 Given Ambulat ory Pharmac y influenza virus vaccine, whole virus [id number] 16 [employer] complet ed influenza virus vaccine, whole virus 05/01/97 Given Ambulat ory Pharmac y typhoid, parenteral, AKD 1996 53 complet ed typhoid, parentera l, AKD 09/27/96 Given Ambulat ory Pharmac y tuberculin purified protein derivative 1996 CON 96 [facility] complet ed tuberculi n purified protein derivativ e 09/27/96 Given Ambulat ory Pharmac y hepatitis A adult vaccine 1996 52 complet ed hepatitis A adult vaccine 09/27/96 Given Ambulat ory Pharmac y meningococcal polysaccharid e (MPSV4) 1996 32 complet ed meningoco ccal polysacch aride (MPSV4) 09/27/96 Given Ambulat ory Pharmac y tetanus-dipht h toxoids (Td) adult/adol 1993 09 complet ed tetanus-d iphth toxoids (Td) adult/ado l 12/02/93 Given Ambulat ory Pharmac y yellow fever vaccine 1993 37 complet ed yellow fever vaccine 09/03/93 Given Ambulat ory Pharmac y poliovirus vaccine, live, oral 1982 02 complet ed polioviru s vaccine, live, oral 03/23/83 Given Ambulat ory Pharmac y Procedures Combined list of: 1) Procedures from Department of [facility] Affairs facilities [facility], not all [place] non-surgical procedures are included; 2) All procedures from the Department of Defense facilities. Procedure Procedure Type Code Date Perfomer Comments Sourc e No data available for this section Ambulatory P harmacy Social History Combined list of available smoking, tobacco, and other social history from Department of Defense and Veterans Affairs facilities. Social History Type Response Date Comment Sourc e Tobacco smoking status NHIS LIFETIME NON-TOBACCO USER 07/31/2017 never [facility] [place] [facility] This section is an empty social history section. DoD Assessment and Plan Combined list of future care activities from Department of Defense and Veterans Affairs facilities (e.g., assessment and plan notes, appointments, orders, and referrals). Additional future care activities may be listed in the Plan of Care section. Result Assessment and Plan Date Source Assessment and Plan No data available for this section 10/08/2024 Ambulatory Pharmacy Functional Status Combined list of recent functional and cognitive assessments recorded at [facility] Defense and [facility] ([facility] Functional Schuyler Measurement (FIM) Scale: 1 = Total Assistance (Subject = 0% +), 2 = Maximal Assistance (Subject = 25% +), 3 = Moderate Assistance (Subject = 50% +), 4 = Minimal Assistance (Subject = 75% +), 5 = Supervision, 6 = Modified Schuyler (Device), 7 = Complete Schuyler (Timely, Safely). Assessment Date/Time Source Assessment Type Assessment Skill Assessment Score Assessment Details No data available for this section
[2024-10-08 10:59] LABS: Anion Gap 14 (12-20); Blood Urea Nitrogen 24 mg/dL (9-16); Calcium 9.7 mg/dL (8.4-10.2); Carbon Dioxide 27 mmol/L (22-29); Chloride 107 mmol/L (96-108); Cholesterol 111 mg/dL (<200); Estimated Glomerular Filt Rate > 60; Glucose Random 108 mg/dL (60-115); HDL Cholesterol 30 mg/dL (>40); LDL Cholesterol Calculated 52 mg/dL (<100); Lipase 65 U/L (8-78); Potassium 4.1 mmol/L (3.3-5.1); Sodium 144 mmol/L (135-145); Triglycerides 145 mg/dL (<150)
[2024-10-08 11:14] LABS: Prostate Specific Antigen Scr 2.09 ng/mL (<0.05-4.0)
[2024-10-08 11:14] LABS: Appearance Urine Turbid; Color Urine Dark Yellow; Glucose Urine UA Negative (Negative); Leukocyte Esterase Urine Negative (Negative); Nitrite Urine Negative (Negative); PH 5.5 (5.0-9.0); Specific Gravity - Urine >= 1.030 (1.005-1.025); Urine Blood Negative (Negative); Urine Ketones Trace mg/dL (Negative); Urine Protein Negative (Neg-Trace)
[2024-10-08 11:16] LABS: Thyroid Stimulating Hormone 0.69 uIU/mL (0.32-4.0)
[2024-10-08 13:36] LABS: Hematocrit 41.4 % (42.0-52.0); Hemoglobin 13.6 g/dl (14.0-18.0); Mean Corpuscular HGB Conc 32.9 g/dl (31.0-36.0); Mean Corpuscular Hemoglobin 31.3 pg (27.0-33.0); Mean Corpuscular Volume 95.4 fL (80.0-98.0); Mean Platelet Volume 10.8 fL (9.4-12.4); Platelet Count 228 X10*3/uL (160-400); Red Blood Count 4.34 X10*6/uL (4.60-5.80); Red Cell Distribution Width 13.7 % (11.0-16.0); White Blood Count 5.1 X10*3/uL (4.8-10.8)
== END 2024-10-08 06:13 | disposition home or self-care (01) ==
LOC: HO.HMGCLDS 06:12
PROVIDERS: PCP Internal Medicine; Visit Provider Internal Medicine
DX: I10 Essential (primary) hypertension (principal); K85.90 Acute pancreatitis without necrosis or infection, unspecified; Z12.5 Encounter for screening for malignant neoplasm of prostate
CPT/HCPCS: 36415; 80048; 80061; 81003; 83690; 84153; 84443; 85027

== ENCOUNTER 2024-10-29 10:25 | Outpatient (AMB) | payer BC, SELFPAY ==
--- NOTE | 2024-10-29 10:26 | A.OFFPC_ITS ---
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 Required: No Accompanied by: Self / Same As Patient Allergies niacin Allergy (Verified 10/29/24 12:26) Unknown Medication List - Last Reconciled 10/29/24 by Rachel Madrid PA-C atorvastatin 40 mg PO BEDTIME cholecalciferol (vitamin D3) 25 mcg PO DAILY fenofibrate nanocrystallized 145 mg PO DAILY hydrochlorothiazide 25 mg PO DAILY lisinopril 40 mg PO DAILY Tobacco use date assessed: 10/29/24 Dental Screening Dental Screen Date: 10/29/24 Did you have a dental visit in the last 12 months?: Yes Did you have a dental problem in the last 6 months where you did not have access to dental care?: No Was dental information given to patient?: Patient has dentist HPI physical HPI Details The patient is a 63-year-old male presenting for a physical exam with a notable history of several chronic conditions. Hyperlipidemia, previously managed with rosuvastatin, encountered issues concerning pharmacy supply resulting in a temporary shift to atorvastatin, which has similar mechanisms. His chronic hypertension is under control with lisinopril and hydrochlorothiazide, with a blood pressure reading slightly elevated during the visit but within accepted variance. Notably, his Type 2 diabetes is improving, driven by significant weight loss and lifestyle changes, which led to the discontinuation of metformin treatment today. Existing medication includes fenofibrate for hypertriglyceridemia, and his Vitamin D deficiency continues to be managed with supplementation. The patient's laboratory results display mild anemia with no associated symptoms, normal electrolyte levels, and signs of potential dehydration, with increased water intake recommended. He denies significant fatigue, chest pain, shortness of breath, or other systemic symptoms, aligning with a largely asymptomatic state regarding his conditions. Social History - The patient engages in regular physica l activity, walking approximately six miles daily, contributing to his recent weight loss. - He maintains a healthy diet and has re duced weight notably over the past months, with a focus on continued weight management. - The patient was discussed about regula r dietary intake of foods high in HDL- friendly nutrients like nuts, avocados, and tuna. - Engages with his family to make health -related decisions, indicating familial support in health management planning. [facility] Medical History (Updated 10/29/24 @ 12:35 by Rachel Madrid PA-C) Class 1 obesity with body mass index (BMI) of 32.0 to 32.9 in adult Anemia Vitamin D deficiency Fatigue Establishing care with new doctor, encounter for Full code status Type 2 diabetes mellitus with hemoglobin A1c goal of less than 7.0% Hyperlipidemia Hypertriglyceridemia Atherosclerotic cardiovascular disease Hx of renal calculi Elevated cholesterol HTN (hypertension) Surgical History (Updated 10/29/24 @ 12:36 by Rachel Madrid PA-C) Hx of lithotripsy Hx of colonoscopy (~03/26/22) Family History Mother Enlarged heart Hypertension Father Heart attack Social History Housing: House Alcohol intake: current Alcohol intake frequency: a few times a month Alcohol type: beer Patient Tobacco Use Status: Never used Tobacco service: No Current occupational status: employed and retired 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 1. Little interest or pleasure in doing things: not at all 2. Feeling down, depressed, or hopeless: not at all 3. Trouble falling or staying asleep, or sleeping too much: not at all 4. Feeling tired or having little energy: not at all 5. Poor appetite or overeating: not at all 6. Feeling bad about yourself - or that you are a failure or have let yourself or your family down: not at all 7. Trouble concentrating on things, such as reading the newspaper or watching television: not at all 8. Moving or speaking so slowly that other people could have noticed. Or the opposite - being so fidgety or restless that you have been moving around a lot more than usual: not at all 9. Thoughts that you would be better off or of hurting yourself in some way: not at all Total score: 0 Depression Screening Interpretation: Negative Depression Screening Done: Yes 22788 - PHQ-9 Billing: Yes Source: Developed by Drs. Noe Dawson, Marley Chacon, Darrell Hernadez and colleagues, with an educational norberto from [employer]. Thrive Questionnaire Date Thrive assessed: 10/29/24 I am a: Patient What is your living situation today?: I have a steady place to live Within the past 12 months, did the food you bought not last and you didn't have the money to get more?: Never true Within the past 12 months, did you worry whether your food would run out before you got money to buy more?: Never true Do you have trouble paying for medicines?: No Do you have trouble getting transportation to medical appointments?: No Do you have trouble paying your heating and electricity bill?: No Do you have trouble taking care of your child, family member or friend?: No Do you have trouble with day-to-day activities such as bathing, preparing meals, shopping, managing finances, etc.?: No Are you currently unemployed and looking for a job?: No Are you interested in more education?: No Please select the resources that you would like help with: None THRIVE Score: 0 AUDIT C Alcohol Use Questionnaire (AUDIT-C) 1. How often do you have a drink containing alcohol?: 2-3 times a week 2. How many drinks containing alcohol do you have on a typical day when you are drinking?: 1 or 2 3. How often do you have six or more drinks on one occasion?: Never Total Score: 3 Score Reviewed/Action Taken: No VINCENT-7 AMB Questionnaire VINCENT-7 Date VINCENT - 7 assessed: 10/29/24 Feeling nervous, anxious, or on edge: 0 = Not at all Not being able to stop or control worryin = Not at all Worrying too much about different things: 0 = Not at all Trouble relaxin = Not at all Being so restless that it is hard to sit still: 0 = Not at all Becoming easily annoyed or irritable: 0 = Not at all Feeling afraid as if something awful might happen: 0 = Not at all Total VINCENT-7 score (0-4 normal; 5-9 mild; 10-14 moderate; 15-21 severe): 0 Source: Developed by Marley Simmons.W. Oswaldo, Darrell Hernadez and colleagues, with an educational norberto from [employer]. VINCENT-7 Assessment Billing VINCENT-7 Assessment Tool: VINCENT-7 Assessment 55343 Review of Systems Const Details: - Cardiovascular: Denies chest pain, reports elevated blood pressure periodically controlled. - Respiratory: Denies shortness of breath. - Gastrointestinal: Denies rectal bleeding or changes in bowel movements. - Neurological: Denies changes in energy levels, reports being less fatigued. - Musculoskeletal: Reports no acute pain or swelling. - General: Declines significant weight loss beyond intentional weight management goals. - Endocrine: Reports stable diabetes, now discontinued metformin. Physical exam (Primary Care) Vital Signs: Last Vital Signs Temp 97.8 F 10/29/24 10:27 Pulse 68 10/29/24 10:27 Resp 12 10/29/24 10:27 BP 141/78 H 10/29/24 10:27 Pulse Ox 97 10/29/24 10:27 Oxygen Delivery Method Room Air 10/29/24 10:27 Care Plan Goal for BP management: <14/90 at Goal patient to continue hydrochlorothiazide 25 mg daily along with lisinopril 40 mg daily. BMI result Body Mass Index 32.2 BMI Assessment/Plan discussion: High BMI High, discussed plan: lifestyle, weight reduction, dietary, physical activity and alcohol moderation Tobacco/Smoking Status: Tobacco use Status Tobacco use date assessed 10/29/24 10/29/24 10:29 Patient Tobacco Use Status Never used Tobacco 10/29/24 10:41 PHQ-9: PHQ-9 Score PHQ-9: Total score 0 10/29/24 10:49 Depression Screening Interpretation: Negative Thrive Assessment: Date of Thrive Assessment Date Thrive assessed 10/29/24 10/29/24 10:30 Advance Care Planning discussion: Completed/Scanned Date of discussion: 10/29/24 Who was present: Patient, provider Rachel Madrid PA-C Forms completed: MOL Time spent: 1-15 minutes, not on file Actual minutes spent: 20 Did not discuss due to Cultural/Spiritual beliefs: No Const Other: Appearance: Alert. Oriented X3. No acute distress. Head: Normal external exam. Normocephalic. Atraumatic. Eyes: Pupils are equal, round, and reactive to light. Extraocular movements intact. Conjunctiva and sclera normal. Eyelids normal. Ears: External auditory canal normal. Tympanic membranes normal. Throat: Pharynx normal. Uvula midline. Moist mucous membranes. Neck: Normal inspection. Neck supple. Full range of motion. No adenopathy. Thyroid Normal. No meningeal signs. No neck mass noted. Cardiovascular: Normal heart rate and rhythm. Heart sound normal. Murmurs noted. Pulses normal throughout. Respiratory: No respiratory distress. Painless inspiration. Breath sounds normal. No wheezes/rales/rhonchi noted. Chest nontender. No accessory muscle usage noted or decreased air movement noted. Abdomen: Soft and nontender. Bowel sounds normal in all 4 quadrants. No distention noted. No organomegaly noted. No visible injury noted. Back: No costovertebral angle tenderness. Full range of motion noted. Skin: Skin warm and dry. Normal skin color. Normal skin turgor. No rashes/lesions/lacerations noted. Extremities: No lower extremity edema. Extremities exhibit normal range of motion. Extremities nontender. Neuro: Oriented X 3. No motor deficit. No sensory deficit. Reflexes normal. Results AMB Hemoglobin A1c AMB Hemoglobin A1c 5.3 % Last Edit by ALEX Velasquez on 10/29/24 11:08 Results Reviewed Results Reviewed: - Labs: Hemoglobin 13.6 gm/dL, mildly anemic; sodium 144 mEq/L, potassium 4.1 mEq/L, BUN indicating slight dehydration. - Tests: Prior echocardiogram with mild to moderate left ventricular hypertrophy; ejection fraction normal at 65-70%. Coding Level of Care Code New Pt Level 4 (10778) Complex EM visit Add On G2211 Diagnoses Establishing care with new doctor, encounter for Z76.89 HTN (hypertension) I10 Type 2 diabetes mellitus with hemoglobin A1c goal of less than 7.0% E11.9 Full code status Z78.9 Fatigue R53.83 Hyperlipidemia E78.5 Vitamin D deficiency E55.9 Anemia D64.9 Hypertriglyceridemia E78.1 Class 1 obesity with body mass index (BMI) of 32.0 to 32.9 in adult E66.811; Z68.32 Additional Codes PHQ-9 - 70091 - PHQ-9 Billing: Yes ([id number]) VINCENT-7 Assessment Billing - VINCENT-7 Assessment Tool: VINCENT-7 Assessment 34515 ([id number]) Vital Signs *Quality* - Advance Care Planning discussion: Completed/Scanned ([id number]) Vital Signs *Quality* - Time spent: 1-15 minutes, not on file ([id number]) Time Spent (min) 45 Assessment & Plan Assessment & Plan (1) Establishing care with new doctor, encounter for: Code(s): Z76.89 - Persons encountering health services in other specified circumstances Category: Medical Plan: Patient is a new patient he was a patient of Dr. Coleman. (2) HTN (hypertension): Code(s): I10 - Essential (primary) hypertension Category: Medical Plan: Blood pressure goal less than 140/90. Blood pressure at goal today. Patient to continue hydrochlorothiazide 25 mg daily and lisinopril 40 mg daily. Condition is chronic and stable continue to monitor. (3) Type 2 diabetes mellitus with hemoglobin A1c goal of less than 7.0%: Code(s): E11.9 - Type 2 diabetes mellitus without complications Category: Medical Plan: A1c level today 5.3. At this time due to patient's weight loss, diet and exercise and A1c level being under 6.5 even below the prediabetic state patient will be discontinued off of the metformin 1000 mg p.o. b.i.d. and will reassess in 3 months. Patient will continue improving diet and exercise regimen to stay off of the metformin. He understands if in 3 months his A1c level is elevated at 6.5 or above you will be restarted on metformin. Condition is chronic and stable continue to monitor. (4) Full code status: Code(s): Z78.9 - Other specified health status Category: Medical Plan: Discussed with patient about Molst form. Patient is a full code. (5) Fatigue: Code(s): R53.83 - Other fatigue Category: Medical Plan: Patient with fatigue, history of normal ejection fraction between 65-70% although mild to moderate left ventricular hypertrophy most concentric but more prominent in the septum. Therefore will repeat echocardiogram due to last echocardiogram on 08/06/2022. Will also repeat stress test and some hormonal labs. Condition is chronic and stable continue to monitor. (6) Hyperlipidemia: Code(s): E78.5 - Hyperlipidemia, unspecified Category: Medical Plan: Total cholesterol goal less than 200, LDL goal <100, HDL goal greater than 40 and triglyceride goal less than 150. Triglycerides at 145, cholesterol 111, LDL 52. At go. HDL mildly low at 30. Patient educated on diet control to elevate HDL. Continue fenofibrate and atorvastatin 40 mg at bedtime; dietary guidance to aid lipid control. Condition is chronic and stable continue to monitor. (7) Vitamin D deficiency: Code(s): E55.9 - Vitamin D deficiency, unspecified Category: Medical Plan: Patient to continue vitamin-D supplement. Condition is chronic and stable continue to monitor (8) Anemia: Code(s): D64.9 - Anemia, unspecified Category: Medical Plan: Ferritin and iron levels to be checked; hydration encouraged. (9) Hypertriglyceridemia: Code(s): E78.1 - Pure hyperglyceridemia Category: Medical Plan: Total cholesterol goal less than 200, LDL goal <100, HDL goal greater than 40 and triglyceride goal less than 150. Triglycerides at 145, cholesterol 111, LDL 52. At go. HDL mildly low at 30. Patient educated on diet control to elevate HDL. Continue fenofibrate and atorvastatin 40 mg at bedtime; dietary guidance to aid lipid control. Condition is chronic and stable continue to monitor. (10) Class 1 obesity with body mass index (BMI) of 32.0 to 32.9 in adult: Code(s): E66.811 - Obesity, class 1; Z68.32 - Body mass index [BMI] 32.0-32.9, adult Category: Medical Plan: Patient to continue improving diet and exercise regimen. Condition is chronic and stable will continue to monitor. Plan Plan Patient was informed and verbally consented to the use of an ambient scribe for clinic note documentation during this visit. 1. Hyperlipidemia Current atorvastatin use will be maintained following completion of rosuvastatin. Lipid profile re-evaluation in 90 days. 2. Hypertension Lisinopril and hydrochlorothiazide regimen continues, monitor blood pressure as routine. 3. Type 2 Diabetes Mellitus Metformin discontinued, monitor A1c in three months, supported by lifestyle means. 4. Vitamin D Deficiency Continue vitamin D supplementation as needed. 5. Anemia Ferritin and iron levels to be checked; hydration encouraged. 6. Hypertriglyceridemia Continue fenofibrate; dietary guidance to aid lipid control. The patient and I discussed the current management of his hyperlipidemia, noting a switch from rosuvastatin to atorvastatin due to pharmacy supply issues. The patient will finish his remaining rosuvastatin and then transition to atorvastatin, with a plan to monitor lipid levels following this regimen. We addressed his type 2 diabetes, acknowledging improved control with lifestyle changes and recent weight loss, leading to discontinuation of metformin. We touched on monitoring his hemoglobin A1c to ensure this remains managed without medication intervention. In addressing his blood pressure, I reassured him that his current plan is effective, considering today's reading as consistent with personal norms. We agreed on continuing current medications and lifestyle changes, with scheduled follow-ups. Orders: Orders Testosterone, Free/Total Today Z00.00 - Encounter for general adult medical examination without abnormal findings Dihydrotestosterone Today Z00.00 - Encounter for general adult medical examination without abnormal findings CA echo transthoracic complete Today R53.83 - Other fatigue CA stress test Today R53.83 - Other fatigue NM cardiolite stress test Today R53.83 - Other fatigue IRON PROFILE Today D64.9 - Anemia, unspecified Liver Panel Today Z00.00 - Encounter for general adult medical examination without abnormal findings Testosterone, Total Today Z00.00 - Encounter for general adult medical examination without abnormal findings Vitamin B12 and Folate Today Z00.00 - Encounter for general adult medical examination without abnormal findings Magnesium Today Z00.00 - Encounter for general adult medical examination without abnormal findings Vitamin D 25-OH Total Today Z00.00 - Encounter for general adult medical examination without abnormal findings Microalbumin, Random (w Creat) Today E11.9 - Type 2 diabetes mellitus without complications DHEA Sulfate Today Z00.00 - Encounter for general adult medical examination without abnormal findings AMB Hemoglobin A1c Today E11.9 - Type 2 diabetes mellitus without complications Ferritin Today D64.9 - Anemia, unspecified Medications: Discontinued metformin Discontinued Reason: Doctor's Order 1,000 mg PO BID 180 tabs 1RF Patient Instructions: - Complete the remaining rosuvastatin medication before transitioning to atorvastatin. - Maintain a heart-healthy diet rich in HDL-boosting foods like avocados, nuts, and fatty fish. - Continue regular physical activity, aiming for daily walks or equivalent exercise. - Increase fluid intake to combat possible dehydration. - Monitor and report any new symptoms like chest pain, significant fatigue, or prolonged weakness. - Schedule follow-up for repeat blood work in three months, including lipid levels and anemia indicators. - Adhere to current medication regimen for hypertension and vitamin D deficiency.
[2024-10-29 10:27] VITALS: BP 141/78; PULSE 68; RESP 12; TEMP 36.6; O2SAT 97; BMI 32.2
--- OUTSIDE RECORDS SUMMARY | 2024-10-29 12:15 | XMS_ITS | Continuity of Care Document ---
Author Name [facility] Organization [facility] Care Team Providers Care Gravel Wheeler Name Role Phone [facility] Unavailable Unavailable Immunizations Combined list of available immunizations from the Department of Defense and Veterans Affairs facilities. Immunization Series Date Given Administered By Site Reaction Lot Number CVX Code Drug Hydraulics Engineer Status Comments Source influenza, injectable, quadrivalent- pf 2021 [id number] 150 Seqirus complet ed influenza , injectabl e, quadrival ent-pf 03/07/22 Given Ambulat ory Pharmac y COVID Vaccine Moderna 2021 [id number] 207 complet ed COVID Vaccine Moderna 10/06/21 Given Ambulat ory Pharmac y typhoid Vi capsular polysaccharid e vac 2021 [id number] 101 sanofi pasteur complet ed typhoid Vi capsular polysacch aride vac 07/18/21 Given Ambulat ory Pharmac y tetanus, diphtheria, acellular pertu is 2021 [id number] 115 sanofi pasteur complet ed tetanus, diphtheri a, acellular pertussis 07/18/21 Given Ambulat ory Pharmac y meningococcal A,C,Y,W-135 (MCV4P) 2021 [id number] 114 sanofi pasteur complet ed meningoco ccal A,C,Y,W-1 35 (MCV4P) 07/18/21 Given Ambulat ory Pharmac y COVID Vaccine Moderna 2020 [id number] 207 complet ed COVID Vaccine Moderna 05/11/21 Given Ambulat ory Pharmac y influenza, seasonal, injectable 2020 [id number] 141 sanofi pasteur complet ed influenza , seasonal, injectabl e 03/10/21 Given Ambulat ory Pharmac y COVID Vaccine Moderna 2020 [id number] 207 complet ed COVID Vaccine Moderna 07/22/20 Given Ambulat ory Pharmac y COVID Vaccine Moderna 2020 [id number] 207 complet ed COVID Vaccine Moderna 06/20/20 Given Ambulat ory Pharmac y influenza, seasonal, injectable 2019 [id number] 141 Se[employer] complet ed influenza , seasonal, injectabl e 03/05/20 Given Ambulat ory Pharmac y typhoid Vi capsular polysaccharid e vac 2019 [id number] 101 sanofi pasteur complet ed typhoid Vi capsular polysacch aride vac 07/16/19 Given Ambulat ory Pharmac y influenza, seasonal, injectable 2018 [id number] 141 Se[employer]irus complet ed influenza , seasonal, injectabl e 03/25/19 Given Ambulat ory Pharmac y influenza, seasonal, injectable 2017 [id number] 141 [employer] complet ed influenza , seasonal, injectabl e 03/07/18 Given Ambulat ory Pharmac y typhoid Vi capsular polysaccharid e vac 2017 [id number] 101 sanofi pasteur complet ed typhoid Vi capsular polysacch aride vac 07/26/17 Given Ambulat ory Pharmac y influenza, seasonal, injectable 2016 [id number] 141 sanofi pasteur complet ed influenza , seasonal, injectabl e 03/19/17 Given Ambulat ory Pharmac y meningococcal A,C,Y,W-135 (MCV4P) 2016 [id number] 114 sanofi pasteur complet ed meningoco ccal A,C,Y,W-1 35 (MCV4P) 06/29/16 Given Ambulat ory Pharmac y influenza, seasonal, injectable 2015 [id number] 141 sanofi pasteur complet ed influenza , seasonal, injectabl e 02/17/16 Given Ambulat ory Pharmac y typhoid Vi capsular polysaccharid e vac 2015 [id number] 101 sanofi pasteur complet ed typhoid Vi capsular polysacch aride vac 07/30/15 Given Ambulat ory Pharmac y influenza, seasonal, injectable 2014 [id number] 141 sanofi pasteur complet ed influenza , seasonal, injectabl e 02/22/15 Given Ambulat ory Pharmac y influenza, seasonal, injectable 2013 [id number] 141 [employer] complet ed influenza , seasonal, injectabl e 01/31/14 Given Ambulat ory Pharmac y typhoid Vi capsular polysaccharid e vac 2013 E8836-3 101 sanofi pasteur complet ed typhoid Vi capsular polysacch aride vac 07/05/13 Given Ambulat ory Pharmac y yellow fever vaccine 2012 [id number] 37 sanofi pasteur complet ed yellow fever vaccine 05/01/13 Given Ambulat ory Pharmac y measles/mumps /rubella virus vaccine 2012 [id number] 03 [employer] complet ed measles/m umps/rube lla virus vaccine 05/01/13 Given Ambulat ory Pharmac y influenza, seasonal, injectable-pf 2012 [id number] 140 Nov[employer]is [employer] ls complet ed influenza , seasonal, injectabl e-pf 04/08/13 Given Ambulat ory Pharmac y influenza, seasonal, injectable-pf 2011 [id number] 140 [employer] complet ed influenza , seasonal, injectabl e-pf 03/30/12 Given Ambulat ory Pharmac y tetanus, diphtheria, acellular pertu is 2011 [id number] 115 sanofi pasteur complet ed tetanus, diphtheri a, acellular pertussis 12/22/11 Given Ambulat ory Pharmac y typhoid Vi capsular polysaccharid e vac 2011 O8205-8 101 sanofi pasteur complet ed typhoid Vi capsular polysacch aride vac 07/01/11 Given Ambulat ory Pharmac y meningococcal A,C,Y,W-135 (MCV4P) 2011 [id number] 114 sanofi pasteur complet ed meningoco ccal A,C,Y,W-1 35 (MCV4P) 07/01/11 Given Ambulat ory Pharmac y influenza, seasonal, injectable-pf 2010 [id number] 1A 140 C[employer]ring complet ed influenza [...] ory Pharmac y influenza virus vaccine,split 2009 [id number] 1B 15 C[employer]ring complet ed influenza [...] Pharmac y Novel influenza-H1N 1-09, injectable 2009 [id number] 1 127 Novartis Pharm[employer] ls complet ed Novel influenza -Z9U7-20, injectabl e 06/19/09 Given Ambulat ory Pharmac y influenza virus vaccine, live 2008 [id number] 111 [employer] comple t ed influenza virus vaccine, live 03/08/09 Given Ambulat ory Pharmac y influenza virus vaccine,split 2007 [id number] 15 GlaxoSmithK[employer] ne complet ed influenza virus vaccine,s plit 03/27/08 Given Ambulat ory Pharmac y typhoid Vi capsular polysaccharid e vac 2007 [id number] 101 sanofi pasteur complet ed typhoid Vi capsular polysacch aride vac 06/28/07 Given Ambulat ory Pharmac y influenza virus vaccine, whole virus 2006 16 complet ed influenza virus vaccine, whole virus 04/27/07 Given Ambulat ory Pharmac y influenza virus vaccine,split 2006 15 complet ed influenza virus vaccine,s plit 04/27/07 Given Ambulat ory Pharmac y meningococcal polysaccharid e (MPSV4) 2006 [id number] 32 sanofi pasteur complet ed meningoco ccal polysacch aride (MPSV4) 09/04/06 Given Ambulat ory Pharmac y influenza virus vaccine,split 2005 [id number] 15 Unknown complet ed influenza virus vaccine,s plit 05/10/06 Given Ambulat ory Pharmac y typhoid vaccine, inactivated 2005 [id number] 101 sanofi pasteur complet ed typhoid vaccine, inactivat ed 08/22/05 Given Ambulat ory Pharmac y influenza virus vaccine,split 2005 [id number] 15 sanofi pasteur complet ed influenza virus vaccine,s plit 06/12/05 Given Ambulat ory Pharmac y influenza virus vaccine, live 2004 [id number] 111 [employer] comple t ed influenza virus vaccine, live 06/03/04 Given Ambulat ory Pharmac y tetanus-dipht h toxoids (Td) adult/adol 2003 [id number] 09 sanofi pasteur complet ed tetanus-d iphth toxoids (Td) adult/ado l 11/03/03 Given Ambulat ory Pharmac y yellow fever vaccine 2003 [id number] 37 sanofi pasteur complet ed yellow fever vaccine 07/31/03 Given Ambulat ory Pharmac y typhoid vaccine, inactivated 2003 [id number] 101 sanofi pasteur complet ed typhoid vaccine, inactivat ed 07/31/03 Given Ambulat ory Pharmac y anthrax vaccine 2002 [id number] 24 [employer] complet ed anthrax vaccine 05/05/03 Given Ambulat ory Pharmac y influenza virus vaccine, whole virus 2002 [id number] 16 sanofi pasteur complet ed influenza virus vaccine, whole virus 05/05/03 Given Ambulat ory Pharmac y tuberculin purified protein derivative 2002 96 complet ed tuberculi n purified protein derivativ e 02/11/03 Given Ambulat ory Pharmac y anthrax vaccine 2002 [id number] 24 [employer] complet ed anthrax vaccine 09/21/02 Given Ambulat ory Pharmac y tuberculin purified protein derivative 2001 [id number] 96 sanofi pasteur complet ed tuberculi n purified protein derivativ e 03/19/02 Given Ambulat ory Pharmac y influenza virus vaccine, whole virus 2001 [id number] 16 sanofi pasteur complet ed influenza virus vaccine, whole virus 03/19/02 Given Ambulat ory Pharmac y typhoid vaccine, inactivated 2001 [id number] 101 sanofi pasteur complet ed typhoid vaccine, inactivat ed 08/29/01 Given Ambulat ory Pharmac y meningococcal polysaccharid e (MPSV4) 2001 [id number] 32 sanofi pasteur complet ed meningoco ccal polysacch aride (MPSV4) 08/29/01 Given Ambulat ory Pharmac y tuberculin purified protein derivative 2000 [id number] 96 sanofi pasteur complet ed tuberculi n purified protein derivativ e 03/13/01 Given Ambulat ory Pharmac y influenza virus vaccine, whole virus 2000 [id number] 16 [facility] complet ed influenza virus vaccine, whole virus 03/13/01 Given Ambulat ory Pharmac y tuberculin purified protein derivative 2000 [id number] [facility] purified protein derivativ e 10/12/00 Given Ambulat ory Pharmac y influenza virus vaccine, whole virus 1999 [id number] 16 [facility] complet ed influenza virus vaccine, whole virus 04/28/00 Given Ambulat ory Pharmac y anthrax vaccine 1999 [id number] 24 [employer] complet ed anthrax vaccine 06/05/99 Given Ambulat ory Pharmac y influenza virus vaccine, whole virus [id number] 16 [facility] complet ed influenza virus vaccine, whole virus 04/02/99 Given Ambulat ory Pharmac y anthrax vaccine 1998 [id number] 24 [employer] complet ed anthrax vaccine 01/05/99 Given Ambulat ory Pharmac y anthrax vaccine 1998 [id number] 24 [employer] complet ed anthrax vaccine 12/22/98 Given Ambulat ory Pharmac y anthrax vaccine 1998 [id number] 24 [employer] complet ed anthrax vaccine 12/08/98 Given Ambulat ory Pharmac y tuberculin purified protein derivative 1998 2493-11 96 [facility] tuberculi n purified protein derivativ e 09/24/98 Given Ambulat ory Pharmac y measles/mumps /rubella virus vaccine 1997 [id number] 03 [employer] complet ed measles/m umps/rube lla virus vaccine 04/19/98 Given Ambulat ory Pharmac y influenza virus vaccine, whole virus [id number] [facility] virus vaccine, whole virus 04/03/98 Given Ambulat ory Pharmac y tuberculin purified protein derivative 1997 2480-11 96 [facility] ed tuberculi n purified protein derivativ e 09/28/97 Given Ambulat ory Pharmac y influenza virus vaccine, whole virus [id number] [id number] 16 [employer] complet ed influenza virus vaccine, [...] [facility], not all [place] non-surgical procedures are included; 2) All procedures [...] Plan No data available for this section 10/29/2024 Ambulatory Pharmacy Functional Status Combined list of recent functional and cognitive assessments recorded at Department of Defense and Veterans Affairs (VA).VA Functional Patrick Measurement (FIM) Scale: 1 = Total Assistance (Subject = 0% +), 2 = Maximal Assistance (Subject = 25% +), 3 = Moderate Assistance (Subject = 50% +), 4 = Minimal Assistance (Subject = 75% +), 5 = Supervision, 6 = Modified Patrick (Device), 7 = Complete Patrick (Timely, Safely). Assessment Date/Time Source Assessment Type Assessment Skill Assessment Score Assessment Details No data available for this section
== END 2024-10-29 11:27 | disposition home or self-care (01) ==
LOC: HO.HMCSH 10:25
PROVIDERS: PCP Internal Medicine; Visit Provider Physician Assistant Medical
DX: Z76.89 Persons encountering health services in other specified circumstances (principal); I10 Essential (primary) hypertension; E11.9 Type 2 diabetes mellitus without complications; Z78.9 Other specified health status; R53.83 Other fatigue; E78.5 Hyperlipidemia, unspecified; E55.9 Vitamin D deficiency, unspecified; D64.9 Anemia, unspecified; E78.1 Pure hyperglyceridemia; E66.811 Obesity, class 1; Z68.32 Body mass index [BMI] 32.0-32.9, adult; Z00.00 Encounter for general adult medical examination without abnormal findings

== ENCOUNTER → 2024-10-29 10:25 | Outpatient (BNVA) | payer BC, SELFPAY | PROVIDERS: PCP Internal Medicine; Visit Provider Physician Assistant Medical | DX: Z00.00 Encounter for general adult medical examination without abnormal findings (principal); E78.5 Hyperlipidemia, unspecified; I10 Essential (primary) hypertension; E11.9 Type 2 diabetes mellitus without complications; E78.1 Pure hyperglyceridemia; R53.83 Other fatigue; D64.9 Anemia, unspecified; E66.811 Obesity, class 1; Z68.32 Body mass index [BMI] 32.0-32.9, adult; Z76.89 Persons encountering health services in other specified circumstances; Z78.9 Other specified health status; Z79.899 Other long term (current) drug therapy | CPT/HCPCS: 83036; 96127 ==

== ENCOUNTER 2024-10-30 08:59 | Outpatient (REF) | payer BC, SELFPAY ==
--- OUTSIDE RECORDS SUMMARY | 2024-10-30 09:19 | XMS_ITS | Continuity of Care Document ---
Author Name [facility] Organization [facility] Care Team Providers Care Clinical Rehabilitation Coordinator Name Role Phone [facility] Unavailable Unavailable Immunizations Combined list of available immunizations from the Department of Defense and Veterans Affairs facilities. Immunization Series Date Given Administered By Site Reaction Lot Number CVX Code Drug Pipe Chipper Status Comments Source influenza, injectable, quadrivalent- pf 2021 [id number] 150 Se[employer]irus complet ed influenza , injectabl e, quadrival ent-pf 03/07/22 Given Ambulat ory Pharmac y COVID Vaccine Moderna 2021 [id number] 207 complet ed COVID Vaccine Moderna 10/06/21 Given Ambulat ory Pharmac y typhoid Vi capsular polysaccharid e vac 2021 [id number] 101 sanofi pasteur complet ed typhoid Vi capsular polysacch aride vac 07/18/21 Given Ambulat ory Pharmac y tetanus, diphtheria, acellular pertu is 2021 [id number] 115 sanofi pasteur complet ed tetanus, diphtheri a, acellular pertussis 07/18/21 Given Ambulat ory Pharmac y meningococcal A,C,Y,W-135 (MCV4P) 2021 [id number] 114 sanofi pasteur complet ed meningoco ccal A,C,Y,W-1 35 (MCV4P) 07/18/21 Given Ambulat ory Pharmac y COVID Vaccine Moderna 2020 [id number] 207 complet ed COVID Vaccine Moderna 05/11/21 Given Ambulat ory Pharmac y influenza, seasonal, injectable 2020 [id number] 141 sanofi pasteur complet ed influenza , seasonal, injectabl e 03/10/21 Given Ambulat ory Pharmac y COVID Vaccine Moderna 2020 [id number] 207 complet ed COVID Vaccine Moderna 07/22/20 Given Ambulat ory Pharmac y COVID Vaccine Moderna 2020 [id number] 207 complet ed COVID Vaccine Moderna 06/20/20 Given Ambulat ory Pharmac y influenza, seasonal, injectable 2019 [id number] 141 [employer] complet ed influenza , seasonal, injectabl e 03/05/20 Given Ambulat ory Pharmac y typhoid Vi capsular polysaccharid e vac 2019 [id number] 101 sanofi pasteur complet ed typhoid Vi capsular polysacch aride vac 07/16/19 Given Ambulat ory Pharmac y influenza, seasonal, injectable 2018 [id number] 141 [employer] complet ed influenza , seasonal, injectabl e 03/25/19 Given Ambulat ory Pharmac y influenza, seasonal, injectable 2017 [id number] 141 [employer] complet ed influenza , seasonal, injectabl e 03/07/18 Given Ambulat ory Pharmac y typhoid Vi capsular polysaccharid e vac 2017 [id number] 101 sanofi pasteur complet ed typhoid Vi capsular polysacch aride vac 07/26/17 Given Ambulat ory Pharmac y influenza, seasonal, injectable 2016 [id number] 141 sanofi pasteur complet ed influenza , seasonal, injectabl e 03/19/17 Given Ambulat ory Pharmac y meningococcal A,C,Y,W-135 (MCV4P) 2016 [id number] 114 sanofi pasteur complet ed meningoco ccal A,C,Y,W-1 35 (MCV4P) 06/29/16 Given Ambulat ory Pharmac y influenza, seasonal, injectable 2015 [id number] 141 sanofi pasteur complet ed influenza , seasonal, injectabl e 02/17/16 Given Ambulat ory Pharmac y typhoid Vi capsular polysaccharid e vac 2015 P3336-2 101 sanofi pasteur complet ed typhoid Vi capsular polysacch aride vac 07/30/15 Given Ambulat ory Pharmac y influenza, seasonal, injectable 2014 [id number] 141 sanofi pasteur complet ed influenza , seasonal, injectabl e 02/22/15 Given Ambulat ory Pharmac y influenza, seasonal, injectable 2013 [id number] 141 [employer] complet ed influenza , seasonal, injectabl e 01/31/14 Given Ambulat ory Pharmac y typhoid Vi capsular polysaccharid e vac 2013 B9101-0 101 sanofi pasteur complet ed typhoid Vi capsular polysacch aride vac 07/05/13 Given Ambulat ory Pharmac y yellow fever vaccine 2012 [id number] 37 sanofi pasteur complet ed yellow fever vaccine 05/01/13 Given Ambulat ory Pharmac y measles/mumps /rubella virus vaccine 2012 [id number] 03 [employer] complet ed measles/m umps/rube lla virus vaccine 05/01/13 Given Ambulat ory Pharmac y influenza, seasonal, injectable-pf 2012 [id number] 140 Novartis Pharm[employer] ls complet ed influenza , seasonal, injectabl e-pf 04/08/13 Given Ambulat ory Pharmac y influenza, seasonal, injectable-pf 2011 [id number] 140 [employer] complet ed influenza , seasonal, injectabl e-pf 03/30/12 Given Ambulat ory Pharmac y tetanus, diphtheria, acellular pertu is 2011 [id number] 115 sanofi pasteur complet ed tetanus, diphtheri a, acellular pertussis 12/22/11 Given Ambulat ory Pharmac y typhoid Vi capsular polysaccharid e vac 2011 T0585-2 101 sanofi pasteur complet ed typhoid Vi capsular polysacch aride vac 07/01/11 Given Ambulat ory Pharmac y meningococcal A,C,Y,W-135 (MCV4P) 2011 [id number] 114 sanofi pasteur complet ed meningoco ccal A,C,Y,W-1 35 (MCV4P) 07/01/11 Given Ambulat ory Pharmac y influenza, seasonal, injectable-pf 2010 [id number] 1A 140 [employer] complet ed influenza [...] ory Pharmac y influenza virus vaccine,split 2009 [id number] 1B 15 [employer] complet ed influenza [...] Pharmac y Novel influenza-H1N 1-09, injectable 2009 [id number] 1 127 Nov[employer]is Pharm[employer] ls complet ed Novel influenza -I3F2-66, injectabl e 06/19/09 Given Ambulat ory Pharmac y influenza virus vaccine, live 2008 [id number] 111 [employer] comple t ed influenza virus vaccine, live 03/08/09 Given Ambulat ory Pharmac y influenza virus vaccine,split 2007 [id number] 15 GlaxoSmithKli ne complet ed influenza virus vaccine,s plit 03/27/08 Given Ambulat ory Pharmac y typhoid Vi capsular polysaccharid e vac 2007 ZX075-8 101 sanofi pasteur complet ed typhoid Vi capsular polysacch aride vac 06/28/07 Given Ambulat ory Pharmac y influenza virus vaccine, whole virus 2006 16 complet ed influenza virus vaccine, whole virus 04/27/07 Given Ambulat ory Pharmac y influenza virus vaccine,split 2006 15 complet ed influenza virus vaccine,s plit 04/27/07 Given Ambulat ory Pharmac y meningococcal polysaccharid e (MPSV4) 2006 [id number] 32 sanofi pasteur complet ed meningoco ccal polysacch aride (MPSV4) 09/04/06 Given Ambulat ory Pharmac y influenza virus vaccine,split 2005 [id number] 15 Unknown complet ed influenza virus vaccine,s plit 05/10/06 Given Ambulat ory Pharmac y typhoid vaccine, inactivated 2005 [id number] 101 sanofi pasteur complet ed typhoid vaccine, inactivat ed 08/22/05 Given Ambulat ory Pharmac y influenza virus vaccine,split 2005 [id number] 15 sanofi pasteur complet ed influenza virus vaccine,s plit 06/12/05 Given Ambulat ory Pharmac y influenza virus vaccine, live 2004 [id number] 111 [employer] comple t ed influenza virus vaccine, live 06/03/04 Given Ambulat ory Pharmac y tetanus-dipht h toxoids (Td) adult/adol 2003 [id number] 09 sanofi pasteur complet ed tetanus-d iphth toxoids (Td) adult/ado l 11/03/03 Given Ambulat ory Pharmac y yellow fever vaccine 2003 [id number] 37 sanofi pasteur complet ed yellow fever vaccine 07/31/03 Given Ambulat ory Pharmac y typhoid vaccine, inactivated 2003 R3302-7 101 sanofi pasteur complet ed typhoid vaccine, inactivat ed 07/31/03 Given Ambulat ory Pharmac y anthrax vaccine 2002 [id number] 24 [employer] complet ed anthrax vaccine 05/05/03 Given Ambulat ory Pharmac y influenza virus vaccine, whole virus 2002 [id number] 16 sanofi pasteur complet ed influenza virus vaccine, whole virus 05/05/03 Given Ambulat ory Pharmac y tuberculin purified protein derivative 2002 96 complet ed tuberculi n purified protein derivativ e 02/11/03 Given Ambulat ory Pharmac y anthrax vaccine 2002 [id number] 24 [employer] complet ed anthrax vaccine 09/21/02 Given Ambulat ory Pharmac y tuberculin purified protein derivative 2001 [id number] 96 sanofi pasteur complet ed tuberculi n purified protein derivativ e 03/19/02 Given Ambulat ory Pharmac y influenza virus vaccine, whole virus 2001 [id number] 16 sanofi pasteur complet ed influenza virus vaccine, whole virus 03/19/02 Given Ambulat ory Pharmac y typhoid vaccine, inactivated 2001 [id number] 101 sanofi pasteur complet ed typhoid vaccine, inactivat ed 08/29/01 Given Ambulat ory Pharmac y meningococcal polysaccharid e (MPSV4) 2001 [id number] 32 sanofi pasteur complet ed meningoco ccal polysacch aride (MPSV4) 08/29/01 Given Ambulat ory Pharmac y tuberculin purified protein derivative 2000 [id number] 96 sanofi pasteur complet ed tuberculi n purified protein derivativ e 03/13/01 Given Ambulat ory Pharmac y influenza virus vaccine, whole virus 2000 [id number] 16 [facility] complet ed influenza virus vaccine, whole virus 03/13/01 Given Ambulat ory Pharmac y tuberculin purified protein derivative 2000 [id number] 96 [facility]1983[facility] Labs complet ed tuberculi n purified protein derivativ e 10/12/00 Given Ambulat ory Pharmac y influenza virus vaccine, whole virus 1999 [id number] 16 [facility] complet ed influenza virus vaccine, whole virus 04/28/00 Given Ambulat ory Pharmac y anthrax vaccine 1999 [id number] 24 [employer] complet ed anthrax vaccine 06/05/99 Given Ambulat ory Pharmac y influenza virus vaccine, whole virus 19982283 [id number] 16 [facility] complet ed influenza virus vaccine, whole virus 04/02/99 Given Ambulat ory Pharmac y anthrax vaccine 1998 [id number] 24 [employer] complet ed anthrax vaccine 01/05/99 Given Ambulat ory Pharmac y anthrax vaccine 1998 [id number] 24 [employer] complet ed anthrax vaccine 12/22/98 Given Ambulat ory Pharmac y anthrax vaccine 1998 [id number] 24 [employer] complet ed anthrax vaccine 12/08/98 Given Ambulat ory Pharmac y tuberculin purified protein derivative 1998 2493-11 96 [facility] Labs complet ed tuberculi n purified protein derivativ e 09/24/98 Given Ambulat ory Pharmac y measles/mumps /rubella virus vaccine 1997 [id number] 03 [employer] complet ed measles/m umps/rube lla virus vaccine 04/19/98 Given Ambulat ory Pharmac y influenza virus vaccine, whole virus [id number] [id number] 16 [facility] Labs complet ed influenza virus vaccine, whole virus 04/03/98 Given Ambulat ory Pharmac y tuberculin purified protein derivative 1997 2480-11 96 [facility] Labs complet ed tuberculi n purified protein derivativ e 09/28/97 Given Ambulat ory Pharmac y influenza virus vaccine, whole virus [id number] 16 [employer] complet ed influenza virus vaccine, [...] [facility], not all [place] non-surgical procedures are included; 2) All procedures [...] Plan No data available for this section 10/30/2024 Ambulatory Pharmacy Functional Status Combined list of recent functional and cognitive assessments recorded at Department of Defense and Veterans Affairs (VA).VA Functional Howell Measurement (FIM) Scale: 1 = Total Assistance (Subject = 0% +), 2 = Maximal Assistance (Subject = 25% +), 3 = Moderate Assistance (Subject = 50% +), 4 = Minimal Assistance (Subject = 75% +), 5 = Supervision, 6 = Modified Howell (Device), 7 = Complete Howell (Timely, Safely). Assessment Date/Time Source Assessment Type Assessment Skill Assessment Score Assessment Details No data available for this section
[2024-10-30 11:12] LABS: Vitamin B12 346 pg/mL (200-900)
[2024-10-30 12:21] LABS: Creatinine Urine 133.59 mg/dL; Microalbum/Creatinine Ratio Ur 6.7 ug/mg cr (<30)
[2024-10-30 12:56] LABS: Ferritin 150 ng/mL (20-250); Vitamin D 25-OH Total 43.2 ng/mL (>30)
[2024-10-30 12:58] LABS: Alanine Aminotransferase 49 U/L (0-40); Albumin Level 4.6 g/dL (3.5-5.0); Alkaline Phosphatase 43 U/L (39-117); Aspartate Amino Transferase 42 U/L (5-37); Bilirubin Direct 0.3 mg/dL (0.0-0.5); Bilirubin Total 0.7 mg/dL (0.0-1.0); Iron 84 mcg/dL (45-160); Percent Iron Saturation 30 % (15-50); Total Iron Binding Capacity 276 mcg/dL (228-428); Total Protein 7.1 g/dL (6.5-8.0); Unsaturated Iron Binding 192 ug/dL
[2024-10-31 07:13] LABS: DHEA Sulfate 56 mcg/dL (20-217)
[2024-11-05 03:27] LABS: Dihydrotestosterone 17 ng/dL (12-65)
[2024-11-11 12:54] LABS: Testosterone, Total 189 ng/dL (250-1100)
== END 2024-10-30 09:00 | disposition home or self-care (01) ==
LOC: HO.HMGCLDS 08:59
PROVIDERS: PCP Internal Medicine; Visit Provider Physician Assistant Medical
DX: Z00.00 Encounter for general adult medical examination without abnormal findings (principal); D64.9 Anemia, unspecified; E11.9 Type 2 diabetes mellitus without complications
CPT/HCPCS: 36415; 80076; 82043; 82306; 82570; 82607; 82627; 82642; 82728; 82746; 83540; 83735; 84402; 84403

== ENCOUNTER → 2024-12-14 07:53 | Outpatient (REF) | payer BC, SELFPAY ==
--- OUTSIDE RECORDS SUMMARY | 2024-12-14 07:55 | XMS_ITS | Continuity of Care Document ---
Author Name [facility] Organization [facility] Care Team Providers Care Routeman Name Role Phone [facility] Unavailable Unavailable Immunizations Combined list of available immunizations from the Department of Defense and Veterans Affairs facilities. Immunization Series Date Given Administered By Site Reaction Lot Number CVX Code Drug Roll Up Machine Operator Status Comments Source influenza, injectable, quadrivalent- pf 2021 [id number] Se[employer] complet ed influenza , injectabl e, quadrival ent-pf 03/07/22 Given Ambulat ory Pharmac y COVID Vaccine Moderna 2021 [id number] 207 complet ed COVID Vaccine Moderna 10/06/21 Given Ambulat ory Pharmac y typhoid Vi capsular polysaccharid e vac 2021 [id number] 101 sanofi pasteur complet ed typhoid Vi capsular polysacch aride vac 07/18/21 Given Ambulat ory Pharmac y tetanus, diphtheria, acellular pertu is 2021 [id number] 115 sanofi pasteur complet ed tetanus, diphtheri a, acellular pertussis 07/18/21 Given Ambulat ory Pharmac y meningococcal A,C,Y,W-135 (MCV4P) 2021 [id number] 114 sanofi pasteur complet ed meningoco ccal A,C,Y,W-1 35 (MCV4P) 07/18/21 Given Ambulat ory Pharmac y COVID Vaccine Moderna 2020 [id number] 207 complet ed COVID Vaccine Moderna 05/11/21 Given Ambulat ory Pharmac y influenza, seasonal, injectable 2020 [id number] 141 sanofi pasteur complet ed influenza , seasonal, injectabl e 03/10/21 Given Ambulat ory Pharmac y COVID Vaccine Moderna 2020 [id number] 207 complet ed COVID Vaccine Moderna 07/22/20 Given Ambulat ory Pharmac y COVID Vaccine Moderna 2020 [id number] 207 complet ed COVID Vaccine Moderna 06/20/20 Given Ambulat ory Pharmac y influenza, seasonal, injectable 2019 [id number] 141 [employer] complet ed influenza , seasonal, injectabl e 03/05/20 Given Ambulat ory Pharmac y typhoid Vi capsular polysaccharid e vac 2019 [id number] 101 sanofi pasteur complet ed typhoid Vi capsular polysacch aride vac 07/16/19 Given Ambulat ory Pharmac y influenza, seasonal, injectable 2018 [id number] 141 Se[employer]irus complet ed influenza , seasonal, injectabl e 03/25/19 Given Ambulat ory Pharmac y influenza, seasonal, injectable 2017 [id number] 141 [employer] complet ed influenza , seasonal, injectabl e 03/07/18 Given Ambulat ory Pharmac y typhoid Vi capsular polysaccharid e vac 2017 [id number] 101 sanofi pasteur complet ed typhoid Vi capsular polysacch aride vac 07/26/17 Given Ambulat ory Pharmac y influenza, seasonal, injectable 2016 [id number] 141 sanofi pasteur complet ed influenza , seasonal, injectabl e 03/19/17 Given Ambulat ory Pharmac y meningococcal A,C,Y,W-135 (MCV4P) 2016 [id number] 114 sanofi pasteur complet ed meningoco ccal A,C,Y,W-1 35 (MCV4P) 06/29/16 Given Ambulat ory Pharmac y influenza, seasonal, injectable 2015 [id number] 141 sanofi pasteur complet ed influenza , seasonal, injectabl e 02/17/16 Given Ambulat ory Pharmac y typhoid Vi capsular polysaccharid e vac 2015 [id number] 101 sanofi pasteur complet ed typhoid Vi capsular polysacch aride vac 07/30/15 Given Ambulat ory Pharmac y influenza, seasonal, injectable 2014 [id number] 141 sanofi pasteur complet ed influenza , seasonal, injectabl e 02/22/15 Given Ambulat ory Pharmac y influenza, seasonal, injectable 2013 [id number] 141 [employer] complet ed influenza , seasonal, injectabl e 01/31/14 Given Ambulat ory Pharmac y typhoid Vi capsular polysaccharid e vac 2013 [id number] 101 sanofi pasteur complet ed typhoid Vi capsular polysacch aride vac 07/05/13 Given Ambulat ory Pharmac y yellow fever vaccine 2012 [id number] 37 sanofi pasteur complet ed yellow fever vaccine 05/01/13 Given Ambulat ory Pharmac y measles/mumps /rubella virus vaccine 2012 [id number] [employer] complet ed measles/m umps/rube lla virus vaccine 05/01/13 Given Ambulat ory Pharmac y influenza, seasonal, injectable-pf 2012 [id number] 140 Nov[employer] ls complet ed influenza , seasonal, injectabl e-pf 04/08/13 Given Ambulat ory Pharmac y influenza, seasonal, injectable-pf 2011 [id number] 140 [employer] complet ed influenza , seasonal, injectabl e-pf 03/30/12 Given Ambulat ory Pharmac y tetanus, diphtheria, acellular pertu is 2011 [id number] 115 sanofi pasteur complet ed tetanus, diphtheri a, acellular pertussis 12/22/11 Given Ambulat ory Pharmac y typhoid Vi capsular polysaccharid e vac 2011 [id number] 101 sanofi pasteur complet ed typhoid Vi capsular polysacch aride vac 07/01/11 Given Ambulat ory Pharmac y meningococcal A,C,Y,W-135 (MCV4P) 2011 [id number] 114 sanofi pasteur complet ed meningoco ccal A,C,Y,W-1 35 (MCV4P) 07/01/11 Given Ambulat ory Pharmac y influenza, seasonal, injectable-pf 2010 [id number] 140 CSL [employer]ring complet ed influenza [...] ory Pharmac y influenza virus vaccine,split 2009 [id number] 15 CSL [employer]ring complet ed influenza [...] Pharmac y Novel influenza-H1N 1-09, injectable 2009 [id number] 127 Novartis Pharm[employer] ls complet ed Novel influenza -B1C0-16, injectabl e 06/19/09 Given Ambulat ory Pharmac y influenza virus vaccine, live 2008 [id number] 111 [employer] comple t ed influenza virus vaccine, live 03/08/09 Given Ambulat ory Pharmac y influenza virus vaccine,split 2007 [id number] 15 [employer] complet ed influenza virus vaccine,s plit 03/27/08 Given Ambulat ory Pharmac y typhoid Vi capsular polysaccharid e vac 2007 [id number] 101 sanofi pasteur complet ed typhoid Vi capsular polysacch aride vac 06/28/07 Given Ambulat ory Pharmac y influenza virus vaccine, whole virus 2006 16 complet ed influenza virus vaccine, whole virus 04/27/07 Given Ambulat ory Pharmac y influenza virus vaccine,split 2006 15 complet ed influenza virus vaccine,s plit 04/27/07 Given Ambulat ory Pharmac y meningococcal polysaccharid e (MPSV4) 2006 [id number] 32 sanofi pasteur complet ed meningoco ccal polysacch aride (MPSV4) 09/04/06 Given Ambulat ory Pharmac y influenza virus vaccine,split 2005 [id number] 15 Unknown complet ed influenza virus vaccine,s plit 05/10/06 Given Ambulat ory Pharmac y typhoid vaccine, inactivated 2005 [id number] 101 sanofi pasteur complet ed typhoid vaccine, inactivat ed 08/22/05 Given Ambulat ory Pharmac y influenza virus vaccine,split 2005 [id number] 15 sanofi pasteur complet ed influenza virus vaccine,s plit 06/12/05 Given Ambulat ory Pharmac y influenza virus vaccine, live 2004 [id number] 111 [employer] comple t ed influenza virus vaccine, live 06/03/04 Given Ambulat ory Pharmac y tetanus-dipht h toxoids (Td) adult/adol 2003 [id number] 09 sanofi pasteur complet ed tetanus-d iphth toxoids (Td) adult/ado l 11/03/03 Given Ambulat ory Pharmac y yellow fever vaccine 2003 [id number] 37 sanofi pasteur complet ed yellow fever vaccine 07/31/03 Given Ambulat ory Pharmac y typhoid vaccine, inactivated 2003 [id number] 101 sanofi pasteur complet ed typhoid vaccine, inactivat ed 07/31/03 Given Ambulat ory Pharmac y anthrax vaccine 2002 [id number] 24 [employer] complet ed anthrax vaccine 05/05/03 Given Ambulat ory Pharmac y influenza virus vaccine, whole virus 2002 [id number] 16 sanofi pasteur complet ed influenza virus vaccine, whole virus 05/05/03 Given Ambulat ory Pharmac y tuberculin purified protein derivative 2002 96 complet ed tuberculi n purified protein derivativ e 02/11/03 Given Ambulat ory Pharmac y anthrax vaccine 2002 [id number] 24 [employer] complet ed anthrax vaccine 09/21/02 Given Ambulat ory Pharmac y tuberculin purified protein derivative 2001 [id number] 96 sanofi pasteur complet ed tuberculi n purified protein derivativ e 03/19/02 Given Ambulat ory Pharmac y influenza virus vaccine, whole virus 2001 [id number] 16 sanofi pasteur complet ed influenza virus vaccine, whole virus 03/19/02 Given Ambulat ory Pharmac y typhoid vaccine, inactivated 2001 [id number] 101 sanofi pasteur complet ed typhoid vaccine, inactivat ed 08/29/01 Given Ambulat ory Pharmac y meningococcal polysaccharid e (MPSV4) 2001 [id number] 32 sanofi pasteur complet ed meningoco ccal polysacch aride (MPSV4) 08/29/01 Given Ambulat ory Pharmac y tuberculin purified protein derivative 2000 [id number] 96 sanofi pasteur complet ed tuberculi n purified protein derivativ e 03/13/01 Given Ambulat ory Pharmac y influenza virus vaccine, whole virus 2000 [id number] 16 [facility] complet ed influenza virus vaccine, whole virus 03/13/01 Given Ambulat ory Pharmac y tuberculin purified protein derivative 2000 [id number] 96 [facility] complet ed tuberculi n purified protein derivativ e 10/12/00 Given Ambulat ory Pharmac y influenza virus vaccine, whole virus 1999 [id number] 16 [facility] complet ed influenza virus vaccine, whole virus 04/28/00 Given Ambulat ory Pharmac y anthrax vaccine 1999 [id number] [employer] complet ed anthrax vaccine 06/05/99 Given Ambulat ory Pharmac y influenza virus vaccine, whole virus [id number] 16 [facility] complet ed influenza virus vaccine, whole virus 04/02/99 Given Ambulat ory Pharmac y anthrax vaccine 1998 [id number] 24 [employer] complet ed anthrax vaccine 01/05/99 Given Ambulat ory Pharmac y anthrax vaccine 1998 [id number] 24 [employer] complet ed anthrax vaccine 12/22/98 Given Ambulat ory Pharmac y anthrax vaccine 1998 [id number] 24 [employer] complet ed anthrax vaccine 12/08/98 Given Ambulat ory Pharmac y tuberculin purified protein derivative 1998 [id number] 96 [facility] complet ed tuberculi n purified protein derivativ e 09/24/98 Given Ambulat ory Pharmac y measles/mumps /rubella virus vaccine 1997 [id number] 03 [facility] [facility] complet ed measles/m umps/rube lla virus vaccine 04/19/98 Given Ambulat ory Pharmac y influenza virus vaccine, whole virus [id number] 16 [facility] complet ed influenza virus vaccine, whole virus 04/03/98 Given Ambulat ory Pharmac y tuberculin purified protein derivative 1997 2480-11 96 [facility] complet ed tuberculi n purified protein derivativ e 09/28/97 Given Ambulat ory Pharmac y influenza virus vaccine, whole virus [id number] 16 [employer] complet ed influenza virus vaccine, [...] [facility], not all [place] non-surgical procedures are included; 2) All procedures [...] Plan No data available for this section 12/14/2024 Ambulatory Pharmacy Functional Status Combined list of recent functional and cognitive assessments recorded at Department of Defense and Veterans Affairs (VA).VA Functional [place] Measurement (FIM) Scale: 1 = Total Assistance (Subject = 0% +), 2 = Maximal Assistance (Subject = 25% +), 3 = Moderate Assistance (Subject = 50% +), 4 = Minimal Assistance (Subject = 75% +), 5 = Supervision, 6 = Modified [place] (Device), 7 = Complete [place] (Timely, Safely). Assessment Date/Time Source Assessment Type Assessment Skill Assessment Score Assessment Details No data available for this section
--- NOTE | 2024-12-14 08:00 | CA_ITS ---
Transthoracic Echocardiogram Patient (Last, First, Middle): Domenic Guillen C Gender: Male Date of : 1960 Age: 63 Procedure Date: 12/14/2024 Procedure Type: Transthoracic Echocardiogram Location: OP Height: 177.8 cm Weight: 101.61 kg BSA: 2.19 m2 Heart Rate: bpm BP: 154 / 86 mmHg Headrig Sawyer: TIM Referring MD: Rachel Madrid PA-C Symptoms: R53.83 - Other fatigue Study Quality: Adequate ECG Rhythm: Sinus Conclusions: - The left ventricular systolic function is normal. The calculated ejection fraction is 63% by biplane method. - There is moderate septal asymmetric hypertrophy. - There is mild calcification of the aortic valve. Findings Left Ventricle Normal left ventricular cavity size. The left ventricular systolic function is normal. The calculated ejection fraction is 63% by biplane method. There is no evidence of regional wall motion abnormalities. Diastolic function is normal for age. There is moderate septal asymmetric hypertrophy. Right Ventricle Normal right ventricular cavity size and systolic function. Atria Both atria are normal in size. Aortic Valve There is mild calcification of the aortic valve. There is no aortic valve stenosis. There is no aortic valve regurgitation. Mitral Valve The mitral valve appears normal. There is trace mitral valve regurgitation. There is no mitral valve stenosis. Pulmonic Valve The pulmonic valve is likely normal. Tricuspid Valve There is trace tricuspid valve regurgitation. There is no evidence of pulmonary hypertension. Great Vessels The asc aorta is normal in size. Venous The inferior vena cava is normal in size and collapses greater than 50% with inspiration. Pericardium/Pleural There is no evidence of pericardial effusion. Prior Study Comparison No significant change compared to prior study dated: 08/06/2022. Measurements 2D Linear Measurements IVSd: 1.38 0.6-0.9/0.6-1.0 cm LVIDd: 5.60 3.9-5.3/4.2-5.9 cm LVIDd Index: 2.56 2.4-3.2/2.2-3.1 cm/m2 LVIDs: 3.33 2.0-3.6 cm LVPWd: 0.96 0.7-1.1 cm LA Diam: 3.90 2.7-3.8/3.0-4.0 cm LAIDs Index: 1.78 1.5-2.3 cm/m2 LV Mass: 337.55 67-162/88-224 g LV Mass Index: 154.13 43-95/49-115 g/m2 LVOT Diam: 2.30 3.0+(-)1.3 cm 2D Systolic Function EF 4C: 64.30 >55% EF 2C: 62.30 >55% EF BiP: 62.60 >55% Mitral Valve MV Pk E: 0.70 MV PK A: 0.66 MV Decel Time: 363.00 E/A: 1.10 E'Lateral: 7.83 E'Medial: 5.55 E/E' Med: 12.70 E/E' Lat: 9.00 PHT: 106.00 MVA PHT: 2.08 Decel [place]: 1.94 Aortic Valve AoV Pk Sesar: 1.95 AoV Mn Sesar: 1.33 AoV VTI: 0.41 AoV Pk Grad: 15.00 Aov Mn Grad: 8.00 MANPREET Cont.VTI: 2.64 LVOT LVOT Pk Sesar: 1.32 LVOT Mn Sesar: 0.88 LVOT VTI: 0.26 LVOT Pk Grad: 7.00 LVOT Mn Grad: 4.00 LVOT Diam: 2.30 LVOT Area: 4.15 Diastolic Function MV Pk E: 0.70 MV Pk A: 0.66 E/A: 1.10 E'Medial: 5.55 E/E' Med: 12.70 E' Laterial: 7.83 E/E' Lat: 9.00 Right Ventricle TAPSE (mm): 21.70 TVS' Sesar: 14.10 Tricuspid Valve TR Pk Sesar: 2.24 TR Pk Grad: 20.00 RA Press: 3.00 RVSP: 23.00 Great Vessels Aorta Sinus of Valsalva: 3.93 2.0-3.[address] [place]: 2.63 1.7-3.4 cm Ao Asc: 3.80 2.1-3.4 cm Updated in Other Vendor System with Status of Final Milan Pastor MD electronically signed on 12/14/2024 12:38:02 PM with status of Final
== END ==
LOC: HO.CARD 07:53
PROVIDERS: PCP Internal Medicine; Visit Provider Physician Assistant Medical
DX: I35.0 Nonrheumatic aortic (valve) stenosis (principal); R53.83 Other fatigue
CPT/HCPCS: 93306

== ENCOUNTER → 2024-12-14 08:00 | Outpatient (BNV) | payer BC, SELFPAY | PROVIDERS: PCP Internal Medicine; Visit Provider Internal Medicine | DX: I42.2 Other hypertrophic cardiomyopathy (principal); I35.8 Other nonrheumatic aortic valve disorders | CPT/HCPCS: 93306 ==

== ENCOUNTER → 2024-12-30 07:48 | Outpatient (REF) | payer BC, SELFPAY ==
--- NOTE | ~2024-12-30 | NM_ITS ---
EXERCISE MYOCARDIAL PERFUSION STUDY INDICATION: Coronary artery disease TECHNIQUE: The patient was brought in for an exercise perfusion study on 12/30/2024. Patient performed exercise as per Emil protocol and was injected 35 mCi of sestamibi once target heart rate was achieved. Images were obtained using the SPECT gamma camera interlaced with the gating device. Images were obtained in supine position. Resting perfusion study was performed on 12/31/2024. Patient was administered 35 mCi of sestamibi intravenously at rest. Images were then obtained in supine position. Total DLP 90 mGy-cm. Images were processed with the software and compared side to side in short axis, horizontal long axis and vertical long axis views. FINDINGS: Raw aquisition reviewed. The stress perfusion study showed no significant perfusion abnormalities. Both uncorrected as well as CT attenuation corrected images were reviewed. The gated study shows low normal LV systolic function with calculated LVEF of 53%, but visually appears higher. LV cavity is normal in size. The gated study shows normal wall thickening and contraction of segments. Resting study shows no significant perfusion abnormality. Gating at rest reveals normal wall motion with ejection fraction at 52%, but visually higher. The findings are consistent with no clear reversible or fixed perfusion abnormality. NM/NM cardiolite stress test IMPRESSION: 1. Myocardial perfusion imaging study shows normal myocardial perfusion. 2. Gated LVEF is 53% during stress and 52% during rest but visually higher. 3. Transient ischemic dilatation not present. EKG component of the test reported separately. Electronically signed by: Milan Pastor MD 01/01/2025 02:07 PM EDT
--- OUTSIDE RECORDS SUMMARY | 2024-12-30 07:49 | XMS_ITS | Continuity of Care Document ---
Author Name [facility] Organization [facility] Care Team Providers Care Operating Room Orderly Name Role Phone [facility] Unavailable Unavailable Immunizations Combined list of available immunizations from the Department of Defense and Veterans Affairs facilities. Immunization Series Date Given Administered By Site Reaction Lot Number CVX Code Drug Technical Services Rep Status Comments Source influenza, injectable, quadrivalent- pf 2021 [id number] Se[employer] complet ed influenza , injectabl e, quadrival ent-pf 03/07/22 Given Ambulat ory Pharmac y COVID Vaccine Moderna 2021 [id number] 207 complet ed COVID Vaccine Moderna 10/06/21 Given Ambulat ory Pharmac y typhoid Vi capsular polysaccharid e vac 2021 [id number] 101 sanofi pasteur complet ed typhoid Vi capsular polysacch aride vac 07/18/21 Given Ambulat ory Pharmac y tetanus, diphtheria, acellular pertu is 2021 [id number] 115 sanofi pasteur complet ed tetanus, diphtheri a, acellular pertussis 07/18/21 Given Ambulat ory Pharmac y meningococcal A,C,Y,W-135 (MCV4P) 2021 [id number] 114 sanofi pasteur complet ed meningoco ccal A,C,Y,W-1 35 (MCV4P) 07/18/21 Given Ambulat ory Pharmac y COVID Vaccine Moderna 2020 [id number] 207 complet ed COVID Vaccine Moderna 05/11/21 Given Ambulat ory Pharmac y influenza, seasonal, injectable 2020 [id number] 141 sanofi pasteur complet ed influenza , seasonal, injectabl e 03/10/21 Given Ambulat ory Pharmac y COVID Vaccine Moderna 2020 [id number] 207 complet ed COVID Vaccine Moderna 07/22/20 Given Ambulat ory Pharmac y COVID Vaccine Moderna 2020 [id number] 207 complet ed COVID Vaccine Moderna 06/20/20 Given Ambulat ory Pharmac y influenza, seasonal, injectable 2019 [id number] 141 [employer] complet ed influenza , seasonal, injectabl e 03/05/20 Given Ambulat ory Pharmac y typhoid Vi capsular polysaccharid e vac 2019 [id number] sanofi pasteur complet ed typhoid Vi capsular polysacch aride vac 07/16/19 Given Ambulat ory Pharmac y influenza, seasonal, injectable 2018 [id number] 141 [employer] complet ed influenza , seasonal, injectabl e 03/25/19 Given Ambulat ory Pharmac y influenza, seasonal, injectable 2017 [id number] 141 [employer] complet ed influenza , seasonal, injectabl e 03/07/18 Given Ambulat ory Pharmac y typhoid Vi capsular polysaccharid e vac 2017 [id number] 101 sanofi pasteur complet ed typhoid Vi capsular polysacch aride vac 07/26/17 Given Ambulat ory Pharmac y influenza, seasonal, injectable 2016 [id number] 141 sanofi pasteur complet ed influenza , seasonal, injectabl e 03/19/17 Given Ambulat ory Pharmac y meningococcal A,C,Y,W-135 (MCV4P) 2016 [id number] 114 sanofi pasteur complet ed meningoco ccal A,C,Y,W-1 35 (MCV4P) 06/29/16 Given Ambulat ory Pharmac y influenza, seasonal, injectable 2015 [id number] 141 sanofi pasteur complet ed influenza , seasonal, injectabl e 02/17/16 Given Ambulat ory Pharmac y typhoid Vi capsular polysaccharid e vac 2015 [id number] 101 sanofi pasteur complet ed typhoid Vi capsular polysacch aride vac 07/30/15 Given Ambulat ory Pharmac y influenza, seasonal, injectable 2014 [id number] 141 sanofi pasteur complet ed influenza , seasonal, injectabl e 02/22/15 Given Ambulat ory Pharmac y influenza, seasonal, injectable 2013 [id number] 141 [employer] complet ed influenza , seasonal, injectabl e 01/31/14 Given Ambulat ory Pharmac y typhoid Vi capsular polysaccharid e vac 2013 [id number] 101 sanofi pasteur complet ed typhoid Vi capsular polysacch aride vac 07/05/13 Given Ambulat ory Pharmac y yellow fever vaccine 2012 [id number] 37 sanofi pasteur complet ed yellow fever vaccine 05/01/13 Given Ambulat ory Pharmac y measles/mumps /rubella virus vaccine 2012 [id number] [employer] complet ed measles/m umps/rube lla virus vaccine 05/01/13 Given Ambulat ory Pharmac y influenza, seasonal, injectable-pf 2012 [id number] 140 Nov[employer]is [employer] ls complet ed influenza , seasonal, injectabl e-pf 04/08/13 Given Ambulat ory Pharmac y influenza, seasonal, injectable-pf 2011 [id number] 140 CSL [employer]ring complet ed influenza , seasonal, injectabl e-pf 03/30/12 Given Ambulat ory Pharmac y tetanus, diphtheria, acellular pertu is 2011 [id number] 115 sanofi pasteur complet ed tetanus, diphtheri a, acellular pertussis 12/22/11 Given Ambulat ory Pharmac y typhoid Vi capsular polysaccharid e vac 2011 [id number] 101 sanofi pasteur complet ed typhoid Vi capsular polysacch aride vac 07/01/11 Given Ambulat ory Pharmac y meningococcal A,C,Y,W-135 (MCV4P) 2011 [id number] 114 sanofi pasteur complet ed meningoco ccal A,C,Y,W-1 35 (MCV4P) 07/01/11 Given Ambulat ory Pharmac y influenza, seasonal, injectable-pf 2010 [id number] 140 CSL [employer]ring complet ed influenza [...] ory Pharmac y influenza virus vaccine,split 2009 [id number] 15 CSL Behring complet ed influenza [...] Pharmac y Novel influenza-H1N 1-09, injectable 2009 [id number] 127 Novartis Pharmaceut[employer] ls complet ed Novel influenza -T6M7-79, injectabl e 06/19/09 Given Ambulat ory Pharmac y influenza virus vaccine, live 2008 [id number] 111 [employer] comple t ed influenza virus vaccine, live 03/08/09 Given Ambulat ory Pharmac y influenza virus vaccine,split 2007 [id number] 15 Gl[employer]Smith[employer] complet ed influenza virus vaccine,s plit 03/27/08 Given Ambulat ory Pharmac y typhoid Vi capsular polysaccharid e vac 2007 [id number] 101 sanofi pasteur complet ed typhoid Vi capsular polysacch aride vac 06/28/07 Given Ambulat ory Pharmac y influenza virus vaccine, whole virus 2006 16 complet ed influenza virus vaccine, whole virus 04/27/07 Given Ambulat ory Pharmac y influenza virus vaccine,split 2006 15 complet ed influenza virus vaccine,s plit 04/27/07 Given Ambulat ory Pharmac y meningococcal polysaccharid e (MPSV4) 2006 [id number] 32 sanofi pasteur complet ed meningoco ccal polysacch aride (MPSV4) 09/04/06 Given Ambulat ory Pharmac y influenza virus vaccine,split 2005 [id number] 15 Unknown complet ed influenza virus vaccine,s plit 05/10/06 Given Ambulat ory Pharmac y typhoid vaccine, inactivated 2005 [id number] sanofi pasteur complet ed typhoid vaccine, inactivat ed 08/22/05 Given Ambulat ory Pharmac y influenza virus vaccine,split 2005 [id number] 15 sanofi pasteur complet ed influenza virus vaccine,s plit 06/12/05 Given Ambulat ory Pharmac y influenza virus vaccine, live 2004 [id number] 111 [employer] comple t ed influenza virus vaccine, live 06/03/04 Given Ambulat ory Pharmac y tetanus-dipht h toxoids (Td) adult/adol 2003 [id number] 09 sanofi pasteur complet ed tetanus-d iphth toxoids (Td) adult/ado l 11/03/03 Given Ambulat ory Pharmac y yellow fever vaccine 2003 [id number] 37 sanofi pasteur complet ed yellow fever vaccine 07/31/03 Given Ambulat ory Pharmac y typhoid vaccine, inactivated 2003 [id number] 101 sanofi pasteur complet ed typhoid vaccine, inactivat ed 07/31/03 Given Ambulat ory Pharmac y anthrax vaccine 2002 [id number] [employer] complet ed anthrax vaccine 05/05/03 Given Ambulat ory Pharmac y influenza virus vaccine, whole virus 2002 [id number] 16 sanofi pasteur complet ed influenza virus vaccine, whole virus 05/05/03 Given Ambulat ory Pharmac y tuberculin purified protein derivative 2002 96 complet ed tuberculi n purified protein derivativ e 02/11/03 Given Ambulat ory Pharmac y anthrax vaccine 2002 [id number] 24 [employer] complet ed anthrax vaccine 09/21/02 Given Ambulat ory Pharmac y tuberculin purified protein derivative 2001 [id number] 96 sanofi pasteur complet ed tuberculi n purified protein derivativ e 03/19/02 Given Ambulat ory Pharmac y influenza virus vaccine, whole virus 2001 [id number] 16 sanofi pasteur complet ed influenza virus vaccine, whole virus 03/19/02 Given Ambulat ory Pharmac y typhoid vaccine, inactivated 2001 [id number] 101 sanofi pasteur complet ed typhoid vaccine, inactivat ed 08/29/01 Given Ambulat ory Pharmac y meningococcal polysaccharid e (MPSV4) 2001 [id number] 32 sanofi pasteur complet ed meningoco ccal polysacch aride (MPSV4) 08/29/01 Given Ambulat ory Pharmac y tuberculin purified protein derivative 2000 [id number] 96 sanofi pasteur complet ed tuberculi n purified protein derivativ e 03/13/01 Given Ambulat ory Pharmac y influenza virus vaccine, whole virus 2000 [id number] 16 [facility] complet ed influenza virus vaccine, whole virus 03/13/01 Given Ambulat ory Pharmac y tuberculin purified protein derivative 2000 [id number] 96 [facility] ed tuberculi n purified protein derivativ e 10/12/00 Given Ambulat ory Pharmac y influenza virus vaccine, whole virus 1999 [id number] 16 [facility] complet ed influenza virus vaccine, whole virus 04/28/00 Given Ambulat ory Pharmac y anthrax vaccine 1999 [id number] [employer] complet ed anthrax vaccine 06/05/99 Given Ambulat ory Pharmac y influenza virus vaccine, whole virus 19982100 [id number] 16 [facility] complet ed influenza virus vaccine, whole virus 04/02/99 Given Ambulat ory Pharmac y anthrax vaccine 1998 [id number] 24 [employer] complet ed anthrax vaccine 01/05/99 Given Ambulat ory Pharmac y anthrax vaccine 1998 [id number] 24 [employer] complet ed anthrax vaccine 12/22/98 Given Ambulat ory Pharmac y anthrax vaccine 1998 [id number] 24 [employer] complet ed anthrax vaccine 12/08/98 Given Ambulat ory Pharmac y tuberculin purified protein derivative 1998 [id number] 96 [facility] ed tuberculi n purified protein derivativ e 09/24/98 Given Ambulat ory Pharmac y measles/mumps /rubella virus vaccine 1997 [id number] [employer] complet ed measles/m umps/rube lla virus vaccine 04/19/98 Given Ambulat ory Pharmac y influenza virus vaccine, whole virus [id number] 16 [facility] ed influenza virus vaccine, whole virus 04/03/98 Given Ambulat ory Pharmac y tuberculin purified protein derivative 1997 [id number] 96 [facility] complet ed tuberculi n purified protein derivativ e 09/28/97 Given Ambulat ory Pharmac y influenza virus vaccine, whole virus [id number] 16 [employer] complet ed influenza virus vaccine, [...] [facility], not all [place] non-surgical procedures are included; 2) All procedures [...] Plan No data available for this section 12/30/2024 Ambulatory Pharmacy Functional Status Combined list of recent functional and cognitive assessments recorded at Department of Defense and Veterans Affairs (VA).VA Functional Bennett Measurement (FIM) Scale: 1 = Total Assistance (Subject = 0% +), 2 = Maximal Assistance (Subject = 25% +), 3 = Moderate Assistance (Subject = 50% +), 4 = Minimal Assistance (Subject = 75% +), 5 = Supervision, 6 = Modified Bennett (Device), 7 = Complete Bennett (Timely, Safely). Assessment Date/Time Source Assessment Type Assessment Skill Assessment Score Assessment Details No data available for this section
--- NOTE | 2024-12-30 08:48 | CA_ITS ---
Acquisition Time: 2024-12-30 08:14:38 Total Exercise Time: 00:07:22 Test Indications: Fatigue Medications: SEE H&P Protocol: EMILY Max HR: 137 BPM 86% of Pred: 158 BPM Max BP: 184/88 mmHG Max Work Load: 9.0 METS Exercise stress test with exercise 7 mins 22 secs of Emily Protocol, achieving 86% MPHR, without any reported symptoms of chest pain or SOB, with isolated PACS, with normotensive response to exercise. With baseline nonspecific ST abnormaity, more pronounced with exercise, suggesting possible ischemia. In recovery, pt continued to feel well. Nuclear images pending. Test reviewed with Dr. Pastor. Referred By: Rachel Madrid Electronically Signed By: Len العلي
== END ==
LOC: HO.CARD 07:48
PROVIDERS: PCP Internal Medicine; Visit Provider Physician Assistant Medical
DX: R53.83 Other fatigue (principal); R55 Syncope and collapse
CPT/HCPCS: 78452; 93017; A9500

== ENCOUNTER → 2024-12-30 08:48 | Outpatient (BNV) | payer BC, SELFPAY | PROVIDERS: PCP Internal Medicine | DX: I49.1 Atrial premature depolarization (principal) | CPT/HCPCS: 78452; 93016; 93018 ==

== ENCOUNTER 2025-01-14 10:09 | Outpatient (AMB) | payer BC, SELFPAY ==
[2025-01-14 10:14] VITALS: BP 138/78; PULSE 69; BMI 31.7
--- NOTE | 2025-01-14 10:14 | MHC.OFFVIS ---
Vital Signs 01/14/25 10:14 Height 5 ft 11 in Weight 227 lb 1.218 oz BMI 31.7 BP 138/78 Blood Pressure Location Lt brachial Position Sitting Pulse 69 Pulse Source Monitor Intake Visit Reasons: 1 yr f/up Allergies niacin Allergy (Verified 10/29/24 12:26) Unknown Medication List - Last Reconciled 01/14/25 by Milan Pastor MD atorvastatin 40 mg PO BEDTIME fenofibrate nanocrystallized 145 mg PO DAILY hydrochlorothiazide 25 mg PO DAILY lisinopril 40 mg PO DAILY HPI Comments Details: Domenic returns for follow-up regarding coronary artery disease. He has various risk factors including obesity, hypertension, dyslipidemia. He underwent further workup because of risk factors and coronary CTA had shown ufsf-tl-wfslhzff coronary disease. Since last seen, he feels fine for the most part. He does not have any exertional angina type symptoms. Sometimes he gets some twinges in his chest which is nonexertional. That is seems noncardiac. Otherwise, he has been trying to lose a lot of weight. He has lost about 20 lb or so. [facility] Medical History (Updated 01/14/25 @ 11:49 by Milan Pastor MD) Class 1 obesity with body mass index (BMI) of 32.0 to 32.9 in adult Anemia Vitamin D deficiency Fatigue Establishing care with new doctor, encounter for Full code status Type 2 diabetes mellitus with hemoglobin A1c goal of less than 7.0% Hyperlipidemia Hypertriglyceridemia Atherosclerotic cardiovascular disease Hx of renal calculi Elevated cholesterol HTN (hypertension) Surgical History (Updated 10/29/24 @ 12:36 by Rachel Madrid PA-C) Hx of lithotripsy Hx of colonoscopy (~03/26/22) Family History Mother Enlarged heart Hypertension Father Heart attack Social History Housing: House Alcohol intake: current Alcohol intake frequency: a few times a month Alcohol type: beer Patient Tobacco Use Status: Never used Tobacco service: No Current occupational status: employed and retired 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 Cognitive needs: No Hearing needs: No Vision needs: Yes (reading glasses) Review of Systems Const Denies weakness ENT Denies dizziness Card Reports chest pain, Denies chest pain with activity, Denies syncope, Denies rapid heart rate, Denies pedal edema, Denies edema, Denies leg edema, Denies lightheadedness, Denies palpitations, Denies dyspnea, Denies dyspnea on exertion and Denies orthopnea Resp Denies cough, Denies dyspnea and Denies dyspnea on exertion GI Denies hematochezia and Denies change in stool character Musc Denies abnormal gait, Denies muscle cramps, Denies muscle weakness, Denies numbness, Denies radiating pain into limb and Denies tingling Neuro Denies abnormal gait, Denies dizziness, Denies syncope, Denies numbness, Denies tingling and Denies weakness Endo Denies palpitations Physical Exam Vital Signs: Last Vital Signs Pulse 69 01/14/25 10:14 BP 138/78 01/14/25 10:14 BMI result Body Mass Index 31.7 Const General: comfortable and no acute distress Orientation/consciousness: patient oriented x3 HEENT Other: Unremarkable Head: Yes normal to inspection Neck Neck: Yes normal visual inspection Chest Chest palpation & inspection: normal inspection of the chest Resp Auscultation: clear to auscultation bilaterally Cardio Palpation: normal PMI Heart sounds: S1 normal heart sound present, S2 normal heart sound present, no gallops, no murmurs and no rubs GI Palpation (GI): Soft to palpation Back/Spine/Pelvis Other: unremarkable Skin General skin exam: no rashes or lesions noted Neuro General: patient oriented x3 Extrem General: Yes normal to inspection Psych Mental Status: mental status grossly normal Office Procedures EKG Details: EKG shows sinus rhythm at 69/Min; rightward axis; incomplete right bundle-branch block and nonspecific ST-T changes. 53404-[id number], Complete Assessment & Plan Assessment & Plan (1) Atherosclerotic cardiovascular disease: Code(s): I25.10 - Atherosclerotic heart disease of [place] coronary artery without angina pectoris Category: Medical (2) HTN (hypertension): Code(s): I10 - Essential (primary) hypertension Category: Medical (3) Other and unspecified hyperlipidemia: Code(s): E78.5 - Hyperlipidemia, unspecified Category: Medical (4) Morbid obesity: Code(s): E66.01 - Morbid (severe) obesity due to excess calories Category: Medical Plan Cardiac studies reviewed. Echocardiogram with LVEF of 63%. Moderate septal hypertrophy. Mild aortic valve calcification. In the coronary CTA from 2022, diffuse pakl-st-yfdqqozs coronary disease. Nothing hemodynamically significant. Possible mild LVH also noted. The recent stress test, he was able to exercise for 9 METS with no angina. ST-T changes are more pronounced with exercise but perfusion imaging was normal. Sleep study in the past without any NONI. He did have snoring. Overall, obesity, hypertension, dyslipidemia, stable coronary disease. With regard to obesity, he is already losing weight and that is excellent. He plans to lose about 20 more lb and that should help him a lot. Blood pressure is stable on the current regimen. He used to have high triglycerides but that is also improving with weight loss. Discussion Notes During the consultation, I discussed with the patient the importance of maintaining lifestyle changes to manage his hypertension and lipids effectively. We reviewed the current status of his coronary artery disease, emphasizing the stability of his condition and the role of weight management in preventing progression. I advised him to monitor his blood pressure regularly and to be vigilant about any changes in symptoms like exertional chest pain. A follow-up appointment was scheduled for six months to evaluate his cardiovascular health and adjust treatment plans as needed. Patient was informed and verbally consented to the use of an ambient scribe for clinic note documentation during this visit. Patient Instructions: - Continue with weight loss and regular exercise. - Monitor blood pressure at home regularly. - Maintain current regimen for coronary artery disease management. - If there is any exertional chest pain, contact us immediately. - Return for follow-up in six months. Coding Level of Care Code Est Pt Level 4 (15048) Complex EM visit Add On G2211 Diagnoses Atherosclerotic cardiovascular disease I25.10 HTN (hypertension) I10 Other and unspecified hyperlipidemia E78.5 Morbid obesity E66.01 CPT Codes EKG - CPT: 56857-[id number], Complete ([id number])
--- OUTSIDE RECORDS SUMMARY | 2025-01-14 11:36 | XMS_ITS | Continuity of Care Document ---
Author Name [facility] Organization [facility] Care Team Providers Care Analytical Chemistry Teacher Name Role Phone [facility] Unavailable Unavailable Immunizations Combined list of available immunizations from the Department of Defense and Veterans Affairs facilities. Immunization Series Date Given Administered By Site Reaction Lot Number CVX Code Drug Edi Analyst Status Comments Source influenza, injectable, quadrivalent- pf 2021 [id number] [employer] complet ed influenza , injectabl e, quadrival ent-pf 03/07/22 Given Ambulat ory Pharmac y COVID Vaccine Moderna 2021 [id number] 207 complet ed COVID Vaccine Moderna 10/06/21 Given Ambulat ory Pharmac y typhoid Vi capsular polysaccharid e vac 2021 [id number] 101 sanofi pasteur complet ed typhoid Vi capsular polysacch aride vac 07/18/21 Given Ambulat ory Pharmac y tetanus, diphtheria, acellular pertu is 2021 [id number] 115 sanofi pasteur complet ed tetanus, diphtheri a, acellular pertussis 07/18/21 Given Ambulat ory Pharmac y meningococcal A,C,Y,W-135 (MCV4P) 2021 [id number] 114 sanofi pasteur complet ed meningoco ccal A,C,Y,W-1 35 (MCV4P) 07/18/21 Given Ambulat ory Pharmac y COVID Vaccine Moderna 2020 [id number] 207 complet ed COVID Vaccine Moderna 05/11/21 Given Ambulat ory Pharmac y influenza, seasonal, injectable 2020 [id number] 141 sanofi pasteur complet ed influenza , seasonal, injectabl e 03/10/21 Given Ambulat ory Pharmac y COVID Vaccine Moderna 2020 [id number] 207 complet ed COVID Vaccine Moderna 07/22/20 Given Ambulat ory Pharmac y COVID Vaccine Moderna 2020 [id number] 207 complet ed COVID Vaccine Moderna 06/20/20 Given Ambulat ory Pharmac y influenza, seasonal, injectable 2019 [id number] 141 [employer] complet ed influenza , seasonal, injectabl e 03/05/20 Given Ambulat ory Pharmac y typhoid Vi capsular polysaccharid e vac 2019 [id number] 101 sanofi pasteur complet ed typhoid Vi capsular polysacch aride vac 07/16/19 Given Ambulat ory Pharmac y influenza, seasonal, injectable 2018 [id number] 141 [employer] complet ed influenza , seasonal, injectabl e 03/25/19 Given Ambulat ory Pharmac y influenza, seasonal, injectable 2017 [id number] 141 [employer] complet ed influenza , seasonal, injectabl e 03/07/18 Given Ambulat ory Pharmac y typhoid Vi capsular polysaccharid e vac 2017 [id number] 101 sanofi pasteur complet ed typhoid Vi capsular polysacch aride vac 07/26/17 Given Ambulat ory Pharmac y influenza, seasonal, injectable 2016 [id number] 141 sanofi pasteur complet ed influenza , seasonal, injectabl e 03/19/17 Given Ambulat ory Pharmac y meningococcal A,C,Y,W-135 (MCV4P) 2016 [id number] 114 sanofi pasteur complet ed meningoco ccal A,C,Y,W-1 35 (MCV4P) 06/29/16 Given Ambulat ory Pharmac y influenza, seasonal, injectable 2015 [id number] 141 sanofi pasteur complet ed influenza , seasonal, injectabl e 02/17/16 Given Ambulat ory Pharmac y typhoid Vi capsular polysaccharid e vac 2015 [id number] 101 sanofi pasteur complet ed typhoid Vi capsular polysacch aride vac 07/30/15 Given Ambulat ory Pharmac y influenza, seasonal, injectable 2014 [id number] 141 sanofi pasteur complet ed influenza , seasonal, injectabl e 02/22/15 Given Ambulat ory Pharmac y influenza, seasonal, injectable 2013 [id number] 141 [employer] complet ed influenza , seasonal, injectabl e 01/31/14 Given Ambulat ory Pharmac y typhoid Vi capsular polysaccharid e vac 2013 X0481-2 101 sanofi pasteur complet ed typhoid Vi capsular polysacch aride vac 07/05/13 Given Ambulat ory Pharmac y yellow fever vaccine 2012 [id number] 37 sanofi pasteur complet ed yellow fever vaccine 05/01/13 Given Ambulat ory Pharmac y measles/mumps /rubella virus vaccine 2012 [id number] [employer] complet ed measles/m umps/rube lla virus vaccine 05/01/13 Given Ambulat ory Pharmac y influenza, seasonal, injectable-pf 2012 [id number] 140 [employer] ls complet ed influenza , seasonal, injectabl e-pf 04/08/13 Given Ambulat ory Pharmac y influenza, seasonal, injectable-pf 2011 [id number] 140 [employer] complet ed influenza , seasonal, injectabl e-pf 03/30/12 Given Ambulat ory Pharmac y tetanus, diphtheria, acellular pertu is 2011 [id number] 115 sanofi pasteur complet ed tetanus, diphtheri a, acellular pertussis 12/22/11 Given Ambulat ory Pharmac y typhoid Vi capsular polysaccharid e vac 2011 [id number] 101 sanofi pasteur complet ed typhoid Vi capsular polysacch aride vac 07/01/11 Given Ambulat ory Pharmac y meningococcal A,C,Y,W-135 (MCV4P) 2011 [id number] 114 sanofi pasteur complet ed meningoco ccal A,C,Y,W-1 35 (MCV4P) 07/01/11 Given Ambulat ory Pharmac y influenza, seasonal, injectable-pf 2010 [id number] 140 [employer] complet ed influenza [...] ory Pharmac y influenza virus vaccine,split 2009 [id number] 15 [employer] complet ed influenza [...] Pharmac y Novel influenza-H1N 1-09, injectable 2009 [id number] 127 Nov[employer]is [employer] ls complet ed Novel influenza -G2C9-54, injectabl e 06/19/09 Given Ambulat ory Pharmac y influenza virus vaccine, live 2008 [id number] 111 [employer] comple t ed influenza virus vaccine, live 03/08/09 Given Ambulat ory Pharmac y influenza virus vaccine,split 2007 [id number] 15 [employer] complet ed influenza virus vaccine,s plit 03/27/08 Given Ambulat ory Pharmac y typhoid Vi capsular polysaccharid e vac 2007 [id number] 101 sanofi pasteur complet ed typhoid Vi capsular polysacch aride vac 06/28/07 Given Ambulat ory Pharmac y influenza virus vaccine, whole virus 2006 16 complet ed influenza virus vaccine, whole virus 04/27/07 Given Ambulat ory Pharmac y influenza virus vaccine,split 2006 15 complet ed influenza virus vaccine,s plit 04/27/07 Given Ambulat ory Pharmac y meningococcal polysaccharid e (MPSV4) 2006 [id number] 32 sanofi pasteur complet ed meningoco ccal polysacch aride (MPSV4) 09/04/06 Given Ambulat ory Pharmac y influenza virus vaccine,split 2005 [id number] 15 Unknown complet ed influenza virus vaccine,s plit 05/10/06 Given Ambulat ory Pharmac y typhoid vaccine, inactivated 2005 [id number] 101 sanofi pasteur complet ed typhoid vaccine, inactivat ed 08/22/05 Given Ambulat ory Pharmac y influenza virus vaccine,split 2005 [id number] 15 sanofi pasteur complet ed influenza virus vaccine,s plit 06/12/05 Given Ambulat ory Pharmac y influenza virus vaccine, live 2004 [id number] 111 [employer] comple t ed influenza virus vaccine, live 06/03/04 Given Ambulat ory Pharmac y tetanus-dipht h toxoids (Td) adult/adol 2003 [id number] 09 sanofi pasteur complet ed tetanus-d iphth toxoids (Td) adult/ado l 11/03/03 Given Ambulat ory Pharmac y yellow fever vaccine 2003 [id number] 37 sanofi pasteur complet ed yellow fever vaccine 07/31/03 Given Ambulat ory Pharmac y typhoid vaccine, inactivated 2003 [id number] 101 sanofi pasteur complet ed typhoid vaccine, inactivat ed 07/31/03 Given Ambulat ory Pharmac y anthrax vaccine 2002 [id number] 24 [employer] complet ed anthrax vaccine 05/05/03 Given Ambulat ory Pharmac y influenza virus vaccine, whole virus 2002 [id number] 16 sanofi pasteur complet ed influenza virus vaccine, whole virus 05/05/03 Given Ambulat ory Pharmac y tuberculin purified protein derivative 2002 96 complet ed tuberculi n purified protein derivativ e 02/11/03 Given Ambulat ory Pharmac y anthrax vaccine 2002 [id number] 24 [employer] complet ed anthrax vaccine 09/21/02 Given Ambulat ory Pharmac y tuberculin purified protein derivative 2001 [id number] 96 sanofi pasteur complet ed tuberculi n purified protein derivativ e 03/19/02 Given Ambulat ory Pharmac y influenza virus vaccine, whole virus 2001 [id number] 16 sanofi pasteur complet ed influenza virus vaccine, whole virus 03/19/02 Given Ambulat ory Pharmac y typhoid vaccine, inactivated 2001 [id number] 101 sanofi pasteur complet ed typhoid vaccine, inactivat ed 08/29/01 Given Ambulat ory Pharmac y meningococcal polysaccharid e (MPSV4) 2001 [id number] 32 sanofi pasteur complet ed meningoco ccal polysacch aride (MPSV4) 08/29/01 Given Ambulat ory Pharmac y tuberculin purified protein derivative 2000 [id number] 96 sanofi pasteur complet ed tuberculi n purified protein derivativ e 03/13/01 Given Ambulat ory Pharmac y influenza virus vaccine, whole virus 2000 [id number] 16 [facility] complet ed influenza virus vaccine, whole virus 03/13/01 Given Ambulat ory Pharmac y tuberculin purified protein derivative 2000 [id number] 96 [facility] complet ed tuberculi n purified protein derivativ e 10/12/00 Given Ambulat ory Pharmac y influenza virus vaccine, whole virus 1999 [id number] 16 [facility] complet ed influenza virus vaccine, whole virus 04/28/00 Given Ambulat ory Pharmac y anthrax vaccine 1999 [id number] 24 [employer] complet ed anthrax vaccine 06/05/99 Given Ambulat ory Pharmac y influenza virus vaccine, whole virus [id number] [id number] 16 [facility] complet ed influenza virus vaccine, whole virus 04/02/99 Given Ambulat ory Pharmac y anthrax vaccine 1998 [id number] 24 [employer] complet ed anthrax vaccine 01/05/99 Given Ambulat ory Pharmac y anthrax vaccine 1998 [id number] 24 [employer] complet ed anthrax vaccine 12/22/98 Given Ambulat ory Pharmac y anthrax vaccine 1998 [id number] 24 [employer] complet ed anthrax vaccine 12/08/98 Given Ambulat ory Pharmac y tuberculin purified protein derivative 1998 2493-11 96 [facility] complet ed tuberculi n purified protein derivativ e 09/24/98 Given Ambulat ory Pharmac y measles/mumps /rubella virus vaccine 1997 [id number] [employer] complet ed measles/m umps/rube lla virus vaccine 04/19/98 Given Ambulat ory Pharmac y influenza virus vaccine, whole virus 19971185 [id number] 16 [facility] complet ed influenza virus vaccine, whole virus 04/03/98 Given Ambulat ory Pharmac y tuberculin purified protein derivative 1997 2480-11 96 [facility] complet ed tuberculi n purified protein derivativ e 09/28/97 Given Ambulat ory Pharmac y influenza virus vaccine, whole virus [id number] 16 [employer] complet ed influenza virus vaccine, [...] [facility], not all [place] non-surgical procedures are included; 2) All procedures [...] Plan No data available for this section 01/14/2025 Ambulatory Pharmacy Functional Status Combined list of recent functional and cognitive assessments recorded at Department of Defense and Veterans Affairs ([facility]).[facility] Functional [place] Measurement (FIM) Scale: 1 = Total Assistance (Subject = 0% +), 2 = Maximal Assistance (Subject = 25% +), 3 = Moderate Assistance (Subject = 50% +), 4 = Minimal Assistance (Subject = 75% +), 5 = Supervision, 6 = Modified [place] (Device), 7 = Complete [place] (Timely, Safely). Assessment Date/Time Source Assessment Type Assessment Skill Assessment Score Assessment Details No data available for this section
== END 2025-01-14 10:42 | disposition home or self-care (01) ==
LOC: HO.HCS 10:10
PROVIDERS: PCP Internal Medicine; Visit Provider Internal Medicine
DX: I25.10 Atherosclerotic heart disease of native coronary artery without angina pectoris (principal); I10 Essential (primary) hypertension; E78.5 Hyperlipidemia, unspecified; E66.01 Morbid (severe) obesity due to excess calories
CPT/HCPCS: 93010; 99214

== ENCOUNTER → 2025-01-14 10:09 | Outpatient (BNVA) | payer BC, SELFPAY | PROVIDERS: PCP Internal Medicine; Visit Provider Internal Medicine | DX: I25.10 Atherosclerotic heart disease of native coronary artery without angina pectoris (principal); I10 Essential (primary) hypertension; E66.811 Obesity, class 1; Z68.31 Body mass index [BMI] 31.0-31.9, adult; E78.5 Hyperlipidemia, unspecified | CPT/HCPCS: 93005 ==

== ENCOUNTER 2025-01-26 09:10 | Outpatient (AMB) | payer BC, SELFPAY ==
--- NOTE | 2025-01-26 09:29 | MHC.PC.OV ---
Vital Signs 01/26/25 09:31 Height 5 ft 11 in Weight 228 lb BMI 31.8 BP 135/73 Blood Pressure Location Rt femoral Position Sitting Respiration 16 Pulse 59 Pulse Source Pulse Oximeter Temp 97.3 F Temp Source Temporal Artery Scan Pulse Oximetry (%) 96 Oxygen Delivery Method Room Air Intake Visit Reasons: 3 month follow up Web Merchant Required: No Accompanied by: Self / Same As Patient Allergies niacin Allergy (Verified 01/26/25 10:24) Unknown Medication List - Last Reconciled 01/26/25 by Rachel Madrid PA-C atorvastatin 40 mg PO BEDTIME fenofibrate nanocrystallized 145 mg PO DAILY hydrochlorothiazide 25 mg PO DAILY lisinopril 40 mg PO DAILY Tobacco use date assessed: 10/29/24 Dental Screening Dental Screen Date: 10/29/24 Did you have a dental visit in the last 12 months?: Yes Did you have a dental problem in the last 6 months where you did not have access to dental care?: No Was dental information given to patient?: Patient has dentist HPI 3 month follow up HPI Details The patient is a 64-year-old male presenting with a follow-up for test results and health management. The patient has a history of anemia, identified during blood work conducted on October 08, 2024. He reports occasional tiredness but denies any black or bloody stools. The patient experienced dehydration, as indicated by a BUN level of 24, likely due to fasting before the test. Liver enzyme levels were slightly elevated, with one enzyme at 42 and another at 49, against normal values of 37 and 40, respectively. The patient was advised to avoid alcohol, Tylenol, and fatty fried foods to manage these levels. The patient's cholesterol levels were discussed, with LDL cholesterol at 52, which is below the desired level of 100. However, HDL cholesterol was at 30, below the preferred level of 40, prompting dietary recommendations to increase HDL levels. The patient has a history of low testosterone, which was slightly below normal levels, and a repeat test was suggested. The patient has hypertrophic cardiomyopathy, characterized by moderate septal hypertrophy and mild aortic valve calcification, with an ejection fraction of 63%. This condition is attributed to long-standing hypertension, which has been managed since 1986. Social history - Alcohol consumption: Patient reports minimal alcohol intake. - Diet: Advised to consume foods rich in HDL, such as avocados. [facility] Medical History (Updated 01/26/25 @ 10:29 by Rachel Madrid PA-C) Hypertrophic cardiomyopathy Low testosterone Pure hypercholesterolemia, unspecified Elevated ALT measurement Elevated AST (SGOT) Dehydration Class 1 obesity with body mass index (BMI) of 32.0 to 32.9 in adult Anemia Vitamin D deficiency Fatigue Establishing care with new doctor, encounter for Full code status Type 2 diabetes mellitus with hemoglobin A1c goal of less than 7.0% Hyperlipidemia Hypertriglyceridemia Atherosclerotic cardiovascular disease Hx of renal calculi Elevated cholesterol HTN (hypertension) Surgical History Hx of lithotripsy Hx of colonoscopy (~03/26/22) Family History Mother Enlarged heart Hypertension Father Heart attack Social History Housing: House Alcohol intake: current Alcohol intake frequency: a few times a month Alcohol type: beer Patient Tobacco Use Status: Never used Tobacco service: No Current occupational status: employed and retired 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 1. Little interest or pleasure in doing things: not at all 2. Feeling down, depressed, or hopeless: not at all 3. Trouble falling or staying asleep, or sleeping too much: not at all 4. Feeling tired or having little energy: not at all 5. Poor appetite or overeating: not at all 6. Feeling bad about yourself - or that you are a failure or have let yourself or your family down: not at all 7. Trouble concentrating on things, such as reading the newspaper or watching television: not at all 8. Moving or speaking so slowly that other people could have noticed. Or the opposite - being so fidgety or restless that you have been moving around a lot more than usual: not at all 9. Thoughts that you would be better off or of hurting yourself in some way: not at all Total score: 0 Depression Screening Interpretation: Negative Depression Screening Done: Yes 57046 - PHQ-9 Billing: Yes Source: Developed by Drs. Noe Dawson, Marley Chacon, Darrell Hernadez and colleagues, with an educational norberto from [employer]. Thrive Questionnaire Date Thrive assessed: 10/29/24 I am a: Patient What is your living situation today?: I have a steady place to live Within the past 12 months, did the food you bought not last and you didn't have the money to get more?: Never true Within the past 12 months, did you worry whether your food would run out before you got money to buy more?: Never true Do you have trouble paying for medicines?: No Do you have trouble getting transportation to medical appointments?: No Do you have trouble paying your heating and electricity bill?: No Do you have trouble taking care of your child, family member or friend?: No Do you have trouble with day-to-day activities such as bathing, preparing meals, shopping, managing finances, etc.?: No Are you currently unemployed and looking for a job?: No Are you interested in more education?: No Please select the resources that you would like help with: None THRIVE Score: 0 AUDIT C Alcohol Use Questionnaire (AUDIT-C) 1. How often do you have a drink containing alcohol?: 2-3 times a week 2. How many drinks containing alcohol do you have on a typical day when you are drinking?: 1 or 2 3. How often do you have six or more drinks on one occasion?: Never Total Score: 3 Score Reviewed/Action Taken: No VINCENT-7 AMB Questionnaire VINCENT-7 Date VINCENT - 7 assessed: 10/29/24 Feeling nervous, anxious, or on edge: 0 = Not at all Not being able to stop or control worryin = Not at all Worrying too much about different things: 0 = Not at all Trouble relaxin = Not at all Being so restless that it is hard to sit still: 0 = Not at all Becoming easily annoyed or irritable: 0 = Not at all Feeling afraid as if something awful might happen: 0 = Not at all Total VINCENT-7 score (0-4 normal; 5-9 mild; 10-14 moderate; 15-21 severe): 0 Source: Developed by Marley Simmons Kurt Kroenke and colleagues, with an educational norberto from [employer]. VINCENT-7 Assessment Billing VINCENT-7 Assessment Tool: VINCENT-7 Assessment 34127 Review of Systems Const Details: - General: Reports occasional tiredness. Denies black or bloody stools. - Cardiovascular: Denies chest pain or exertional symptoms. All systems reviewed & are unremarkable except as noted in HPI and below Physical exam (Primary Care) Vital Signs: Last Vital Signs Temp 97.3 F 01/26/25 09:31 Pulse 59 01/26/25 09:31 Resp 16 01/26/25 09:31 BP 135/73 01/26/25 09:31 Pulse Ox 96 01/26/25 09:31 Oxygen Delivery Method Room Air 01/26/25 09:31 Care Plan Goal for BP management: <140/90 at Goal BMI result Body Mass Index 31.8 BMI Assessment/Plan discussion: High BMI High, discussed plan: lifestyle, weight reduction, dietary, physical activity, alcohol moderation and other Tobacco/Smoking Status: Tobacco use Status Tobacco use date assessed 10/29/24 01/26/25 09:30 Patient Tobacco Use Status Never used Tobacco 01/26/25 09:30 PHQ-9: PHQ-9 Score PHQ-9: Total score 0 01/26/25 09:39 Depression Screening Interpretation: Negative Thrive Assessment: Date of Thrive Assessment Date Thrive assessed 10/29/24 01/26/25 09:30 Const Other: Appearance: Alert. Oriented X3. No acute distress. Head: Normal external exam. Normocephalic. Atraumatic. Eyes: Pupils are equal, round, and reactive to light. Extraocular movements intact. Conjunctiva and sclera normal. Eyelids normal. Throat: Pharynx normal. Uvula midline. Moist mucous membranes. Neck: Normal inspection. Neck supple. Full range of motion. Cardiovascular: Normal heart rate and rhythm. Respiratory: No respiratory distress. Painless inspiration. Back: Full range of motion noted. Skin: Skin warm and dry. Normal skin color. Normal skin turgor. No rashes/lesions/lacerations noted. Extremities: Extremities exhibit normal range of motion. Results Reviewed Results Reviewed: - Labs: Anemia noted in blood work from October 08, 2024. - Labs: BUN level of 24 indicating dehydration. - Labs: Elevated liver enzymes with values of 42 and 49. - Labs: LDL cholesterol at 52, HDL cholesterol at 30. - Labs: Low testosterone levels. - Imaging: Echocardiogram showing moderate septal hypertrophy and mild aortic valve calcification with an ejection fraction of 63%. Coding Level of Care Code Est Pt Level 4 (47208) Complex EM visit Add On G2211 Diagnoses Anemia D64.9 Dehydration E86.0 Elevated AST (SGOT) R74.01 Elevated ALT measurement R74.01 Pure hypercholesterolemia, unspecified E78.00 Low testosterone R79.89 Hypertrophic cardiomyopathy I42.2 HTN (hypertension) I10 Additional Codes VINCENT-7 Assessment Billing - VINCENT-7 Assessment Tool: VINCENT-7 Assessment 91802 ([id number]) PHQ-9 - 86091 - PHQ-9 Billing: Yes ([id number]) Assessment & Plan Assessment & Plan (1) Anemia: Code(s): D64.9 - Anemia, unspecified Category: Medical Plan: The patient has been diagnosed with anemia, identified during blood work conducted on October 08, 2024. He reports occasional tiredness but denies any black or bloody stools. A follow-up blood test is recommended to monitor hemoglobin levels and assess for any further decline. (2) Dehydration: Code(s): E86.0 - Dehydration Category: Medical Plan: Dehydration was noted with a BUN level of 24, likely due to fasting before the test. The patient is advised to maintain adequate hydration, especially before future tests. (3) Elevated AST (SGOT): Code(s): R74.01 - Elevation of levels of liver transaminase levels Category: Medical Plan: The patient has slightly elevated liver enzymes, with values of 42 and 49. He is advised to avoid alcohol, Tylenol, and fatty fried foods to manage these levels. (4) Elevated ALT measurement: Code(s): R74.01 - Elevation of levels of liver transaminase levels Category: Medical Plan: The patient has slightly elevated liver enzymes, with values of 42 and 49. He is advised to avoid alcohol, Tylenol, and fatty fried foods to manage these levels. (5) Pure hypercholesterolemia, unspecified: Code(s): E78.00 - Pure hypercholesterolemia, unspecified Category: Medical Plan: The patient's LDL cholesterol is at 52, which is below the desired level of 100, but HDL cholesterol is at 30, below the preferred level of 40. Dietary recommendations include consuming foods rich in HDL, such as avocados, to improve HDL levels. (6) Low testosterone: Code(s): R79.89 - Other specified abnormal findings of blood chemistry Category: Medical Plan: The patient's LDL cholesterol is at 52, which is below the desired level of 100, but HDL cholesterol is at 30, below the preferred level of 40. Dietary recommendations include consuming foods rich in HDL, such as avocados, to improve HDL levels. (7) Hypertrophic cardiomyopathy: Code(s): I42.2 - Other hypertrophic cardiomyopathy Category: Medical Plan: The patient has hypertrophic cardiomyopathy, characterized by moderate septal hypertrophy and mild aortic valve calcification, with an ejection fraction of 63%. This condition is attributed to long-standing hypertension, which has been managed since 1986. Regular monitoring and management of blood pressure are recommended to prevent further cardiac complications. (8) HTN (hypertension): Code(s): I10 - Essential (primary) hypertension Category: Medical Plan: The patient has a history of hypertension, which has been managed since 1986. Blood pressure control is crucial to manage hypertrophic cardiomyopathy and prevent further cardiac complications. Plan Plan Patient was informed and verbally consented to the use of an ambient scribe for clinic note documentation during this visit. 1. Anemia The patient has been diagnosed with anemia, identified during blood work conducted on October 08, 2024. He reports occasional tiredness but denies any black or bloody stools. A follow-up blood test is recommended to monitor hemoglobin levels and assess for any further decline. 2. Dehydration Dehydration was noted with a BUN level of 24, likely due to fasting before the test. The patient is advised to maintain adequate hydration, especially before future tests. 3. Elevated Liver Enzymes The patient has slightly elevated liver enzymes, with values of 42 and 49. He is advised to avoid alcohol, Tylenol, and fatty fried foods to manage these levels. 4. Hypercholesterolemia The patient's LDL cholesterol is at 52, which is below the desired level of 100, but HDL cholesterol is at 30, below the preferred level of 40. Dietary recommendations include consuming foods rich in HDL, such as avocados, to improve HDL levels. 5. Low Testosterone The patient has a history of low testosterone, which was slightly below normal levels. A repeat test is suggested to confirm the levels and assess the need for any intervention. 6. Hypertrophic Cardiomyopathy The patient has hypertrophic cardiomyopathy, characterized by moderate septal hypertrophy and mild aortic valve calcification, with an ejection fraction of 63%. This condition is attributed to long-standing hypertension, which has been managed since 1986. Regular monitoring and management of blood pressure are recommended to prevent further cardiac complications. 7. Hypertension The patient has a history of hypertension, which has been managed since 1986. Blood pressure control is crucial to manage hypertrophic cardiomyopathy and prevent further cardiac complications. During the visit, we discussed the patient's anemia and the need for follow-up blood tests to monitor hemoglobin levels. We also addressed the elevated liver enzymes and advised the patient to avoid alcohol, Tylenol, and fatty fried foods. The importance of maintaining adequate hydration was emphasized, especially before future tests. Dietary changes were recommended to improve HDL cholesterol levels, including the consumption of foods rich in HDL. We reviewed the patient's hypertrophic cardiomyopathy and the significance of managing blood pressure to prevent further cardiac complications. Orders: Orders C Reactive Protein Today Z00.00 - Encounter for general adult medical examination without abnormal findings Comprehensive [place]. Panel Fast Today Z00.00 - Encounter for general adult medical examination without abnormal findings Lipid Panel Today Z00.00 - Encounter for general adult medical examination without abnormal findings Liver Panel Today Z00.00 - Encounter for general adult medical examination without abnormal findings Magnesium Today Z00.00 - Encounter for general adult medical examination without abnormal findings TSH reflex Free T4 Today Z00.00 - Encounter for general adult medical examination without abnormal findings Complete Blood Count Auto Diff Today Z00.00 - Encounter for general adult medical examination without abnormal findings Vitamin B12 and Folate Today Z00.00 - Encounter for general adult medical examination without abnormal findings Vitamin D 25-OH Total Today Z00.00 - Encounter for general adult medical examination without abnormal findings PSA,Total (Free>4and<10) Today Z00.00 - Encounter for general adult medical examination without abnormal findings Hemoglobin A1c Today Z00.00 - Encounter for general adult medical examination without abnormal findings Patient Instructions: - Schedule a follow-up blood test to monitor hemoglobin levels. - Avoid alcohol, Tylenol, and fatty fried foods to manage liver enzyme levels. - Maintain adequate hydration, especially before future tests. - Incorporate foods rich in HDL, such as avocados, into your diet. - Monitor blood pressure regularly and follow up with your healthcare provider as advised.
[2025-01-26 09:31] VITALS: BP 135/73; PULSE 59; RESP 16; TEMP 36.3; O2SAT 96; BMI 31.8
--- OUTSIDE RECORDS SUMMARY | 2025-01-26 09:57 | XMS_ITS | Continuity of Care Document ---
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 Source influenza, injectable, quadrivalent- pf 2021 [id number] Seq[employer] complet ed influenza , injectabl e, quadrival ent-pf 03/07/22 Given Ambulat ory Pharmac y COVID Vaccine Moderna 2021 [id number] 207 complet ed COVID Vaccine Moderna 10/06/21 Given Ambulat ory Pharmac y typhoid Vi capsular polysaccharid e vac 2021 [id number] 101 sanofi pasteur complet ed typhoid Vi capsular polysacch aride vac 07/18/21 Given Ambulat ory Pharmac y tetanus, diphtheria, acellular pertu is 2021 [id number] 115 sanofi pasteur complet ed tetanus, diphtheri a, acellular pertussis 07/18/21 Given Ambulat ory Pharmac y meningococcal A,C,Y,W-135 (MCV4P) 2021 [id number] 114 sanofi pasteur complet ed meningoco ccal A,C,Y,W-1 35 (MCV4P) 07/18/21 Given Ambulat ory Pharmac y COVID Vaccine Moderna 2020 [id number] 207 complet ed COVID Vaccine Moderna 05/11/21 Given Ambulat ory Pharmac y influenza, seasonal, injectable 2020 [id number] 141 sanofi pasteur complet ed influenza , seasonal, injectabl e 03/10/21 Given Ambulat ory Pharmac y COVID Vaccine Moderna 2020 [id number] 207 complet ed COVID Vaccine Moderna 07/22/20 Given Ambulat ory Pharmac y COVID Vaccine Moderna 2020 [id number] 207 complet ed COVID Vaccine Moderna 06/20/20 Given Ambulat ory Pharmac y influenza, seasonal, injectable 2019 [id number] 141 [employer] complet ed influenza , seasonal, injectabl e 03/05/20 Given Ambulat ory Pharmac y typhoid Vi capsular polysaccharid e vac 2019 [id number] 101 sanofi pasteur complet ed typhoid Vi capsular polysacch aride vac 07/16/19 Given Ambulat ory Pharmac y influenza, seasonal, injectable 2018 [id number] 141 Se[employer]irus complet ed influenza , seasonal, injectabl e 03/25/19 Given Ambulat ory Pharmac y influenza, seasonal, injectable 2017 [id number] 141 [employer] complet ed influenza , seasonal, injectabl e 03/07/18 Given Ambulat ory Pharmac y typhoid Vi capsular polysaccharid e vac 2017 [id number] 101 sanofi pasteur complet ed typhoid Vi capsular polysacch aride vac 07/26/17 Given Ambulat ory Pharmac y influenza, seasonal, injectable 2016 [id number] 141 sanofi pasteur complet ed influenza , seasonal, injectabl e 03/19/17 Given Ambulat ory Pharmac y meningococcal A,C,Y,W-135 (MCV4P) 2016 [id number] 114 sanofi pasteur complet ed meningoco ccal A,C,Y,W-1 35 (MCV4P) 06/29/16 Given Ambulat ory Pharmac y influenza, seasonal, injectable 2015 [id number] 141 sanofi pasteur complet ed influenza , seasonal, injectabl e 02/17/16 Given Ambulat ory Pharmac y typhoid Vi capsular polysaccharid e vac 2015 [id number] 101 sanofi pasteur complet ed typhoid Vi capsular polysacch aride vac 07/30/15 Given Ambulat ory Pharmac y influenza, seasonal, injectable 2014 [id number] 141 sanofi pasteur complet ed influenza , seasonal, injectabl e 02/22/15 Given Ambulat ory Pharmac y influenza, seasonal, injectable 2013 [id number] 141 [employer] complet ed influenza , seasonal, injectabl e 01/31/14 Given Ambulat ory Pharmac y typhoid Vi capsular polysaccharid e vac 2013 [id number] 101 sanofi pasteur complet ed typhoid Vi capsular polysacch aride vac 07/05/13 Given Ambulat ory Pharmac y yellow fever vaccine 2012 [id number] 37 sanofi pasteur complet ed yellow fever vaccine 05/01/13 Given Ambulat ory Pharmac y measles/mumps /rubella virus vaccine 2012 [id number] [employer] complet ed measles/m umps/rube lla virus vaccine 05/01/13 Given Ambulat ory Pharmac y influenza, seasonal, injectable-pf 2012 [id number] 140 Nov[employer]is [employer] ls complet ed influenza , seasonal, injectabl e-pf 04/08/13 Given Ambulat ory Pharmac y influenza, seasonal, injectable-pf 2011 [id number] 140 [employer] complet ed influenza , seasonal, injectabl e-pf 03/30/12 Given Ambulat ory Pharmac y tetanus, diphtheria, acellular pertu is 2011 [id number] 115 sanofi pasteur complet ed tetanus, diphtheri a, acellular pertussis 12/22/11 Given Ambulat ory Pharmac y typhoid Vi capsular polysaccharid e vac 2011 D1764-9 101 sanofi pasteur complet ed typhoid Vi capsular polysacch aride vac 07/01/11 Given Ambulat ory Pharmac y meningococcal A,C,Y,W-135 (MCV4P) 2011 [id number] 114 sanofi pasteur complet ed meningoco ccal A,C,Y,W-1 35 (MCV4P) 07/01/11 Given Ambulat ory Pharmac y influenza, seasonal, injectable-pf 2010 [id number] 140 [employer] complet ed influenza [...] ory Pharmac y influenza virus vaccine,split 2009 [id number] 15 [employer] complet ed influenza [...] Pharmac y Novel influenza-H1N 1-09, injectable 2009 [id number] 127 Nov[employer]is [employer] ls complet ed Novel influenza -Q4F4-47, injectabl e 06/19/09 Given Ambulat ory Pharmac y influenza virus vaccine, live 2008 [id number] 111 [employer] comple t ed influenza virus vaccine, live 03/08/09 Given Ambulat ory Pharmac y influenza virus vaccine,split 2007 [id number] 15 [employer] complet ed influenza virus vaccine,s plit 03/27/08 Given Ambulat ory Pharmac y typhoid Vi capsular polysaccharid e vac 2007 [id number] 101 sanofi pasteur complet ed typhoid Vi capsular polysacch aride vac 06/28/07 Given Ambulat ory Pharmac y influenza virus vaccine, whole virus 2006 16 complet ed influenza virus vaccine, whole virus 04/27/07 Given Ambulat ory Pharmac y influenza virus vaccine,split 2006 15 complet ed influenza virus vaccine,s plit 04/27/07 Given Ambulat ory Pharmac y meningococcal polysaccharid e (MPSV4) 2006 [id number] 32 sanofi pasteur complet ed meningoco ccal polysacch aride (MPSV4) 09/04/06 Given Ambulat ory Pharmac y influenza virus vaccine,split 2005 [id number] 15 Unknown complet ed influenza virus vaccine,s plit 05/10/06 Given Ambulat ory Pharmac y typhoid vaccine, inactivated 2005 [id number] 101 sanofi pasteur complet ed typhoid vaccine, inactivat ed 08/22/05 Given Ambulat ory Pharmac y influenza virus vaccine,split 2005 [id number] 15 sanofi pasteur complet ed influenza virus vaccine,s plit 06/12/05 Given Ambulat ory Pharmac y influenza virus vaccine, live 2004 [id number] 111 [employer] comple t ed influenza virus vaccine, live 06/03/04 Given Ambulat ory Pharmac y tetanus-dipht h toxoids (Td) adult/adol 2003 [id number] 09 sanofi pasteur complet ed tetanus-d iphth toxoids (Td) adult/ado l 11/03/03 Given Ambulat ory Pharmac y yellow fever vaccine 2003 [id number] 37 sanofi pasteur complet ed yellow fever vaccine 07/31/03 Given Ambulat ory Pharmac y typhoid vaccine, inactivated 2003 [id number] 101 sanofi pasteur complet ed typhoid vaccine, inactivat ed 07/31/03 Given Ambulat ory Pharmac y anthrax vaccine 2002 [id number] 24 [employer] complet ed anthrax vaccine 05/05/03 Given Ambulat ory Pharmac y influenza virus vaccine, whole virus 2002 [id number] 16 sanofi pasteur complet ed influenza virus vaccine, whole virus 05/05/03 Given Ambulat ory Pharmac y tuberculin purified protein derivative 2002 96 complet ed tuberculi n purified protein derivativ e 02/11/03 Given Ambulat ory Pharmac y anthrax vaccine 2002 [id number] 24 [employer] complet ed anthrax vaccine 09/21/02 Given Ambulat ory Pharmac y tuberculin purified protein derivative 2001 [id number] 96 sanofi pasteur complet ed tuberculi n purified protein derivativ e 03/19/02 Given Ambulat ory Pharmac y influenza virus vaccine, whole virus 2001 [id number] 16 sanofi pasteur complet ed influenza virus vaccine, whole virus 03/19/02 Given Ambulat ory Pharmac y typhoid vaccine, inactivated 2001 [id number] 101 sanofi pasteur complet ed typhoid vaccine, inactivat ed 08/29/01 Given Ambulat ory Pharmac y meningococcal polysaccharid e (MPSV4) 2001 [id number] 32 sanofi pasteur complet ed meningoco ccal polysacch aride (MPSV4) 08/29/01 Given Ambulat ory Pharmac y tuberculin purified protein derivative 2000 [id number] 96 sanofi pasteur complet ed tuberculi n purified protein derivativ e 03/13/01 Given Ambulat ory Pharmac y influenza virus vaccine, whole virus 2000 [id number] 16 [facility] complet ed influenza virus vaccine, whole virus 03/13/01 Given Ambulat ory Pharmac y tuberculin purified protein derivative 2000 [id number] [facility] complet ed tuberculi n purified protein derivativ e 10/12/00 Given Ambulat ory Pharmac y influenza virus vaccine, whole virus 1999 [id number] 16 [facility] complet ed influenza virus vaccine, whole virus 04/28/00 Given Ambulat ory Pharmac y anthrax vaccine 1999 [id number] 24 [employer] complet ed anthrax vaccine 06/05/99 Given Ambulat ory Pharmac y influenza virus vaccine, whole virus [id number] 16 [facility] complet ed influenza virus vaccine, whole virus 04/02/99 Given Ambulat ory Pharmac y anthrax vaccine 1998 [id number] 24 [employer] complet ed anthrax vaccine 01/05/99 Given Ambulat ory Pharmac y anthrax vaccine 1998 [id number] 24 [employer] complet ed anthrax vaccine 12/22/98 Given Ambulat ory Pharmac y anthrax vaccine 1998 [id number] 24 [employer] complet ed anthrax vaccine 12/08/98 Given Ambulat ory Pharmac y tuberculin purified protein derivative 1998 [id number] 96 [facility] complet ed tuberculi n purified protein derivativ e 09/24/98 Given Ambulat ory Pharmac y measles/mumps /rubella virus vaccine 1997 [id number] [employer] complet ed measles/m umps/rube lla virus vaccine 04/19/98 Given Ambulat ory Pharmac y influenza virus vaccine, whole virus 19971975 [id number] 16 [facility] complet ed influenza virus vaccine, whole virus 04/03/98 Given Ambulat ory Pharmac y tuberculin purified protein derivative 1997 2480-11 96 [facility] complet ed tuberculi n purified protein derivativ e 09/28/97 Given Ambulat ory Pharmac y influenza virus vaccine, whole virus [id number] 16 [employer] complet ed influenza virus vaccine, [...] [facility], not all [place] non-surgical procedures are included; 2) All procedures [...] Plan No data available for this section 01/26/2025 Ambulatory Pharmacy Functional Status Combined list of recent functional and cognitive assessments recorded at Department of Defense and Veterans Affairs (VA).VA Functional [place] Measurement (FIM) Scale: 1 = Total Assistance (Subject = 0% +), 2 = Maximal Assistance (Subject = 25% +), 3 = Moderate Assistance (Subject = 50% +), 4 = Minimal Assistance (Subject = 75% +), 5 = Supervision, 6 = Modified [place] (Device), 7 = Complete [place] (Timely, Safely). Assessment Date/Time Source Assessment Type Assessment Skill Assessment Score Assessment Details No data available for this section
== END 2025-01-26 09:55 | disposition home or self-care (01) ==
LOC: HO.HMCSH 09:10
PROVIDERS: PCP Internal Medicine; Visit Provider Physician Assistant Medical
DX: D64.9 Anemia, unspecified (principal); E86.0 Dehydration; R74.01 Elevation of levels of liver transaminase levels; E78.00 Pure hypercholesterolemia, unspecified; R79.89 Other specified abnormal findings of blood chemistry; I42.2 Other hypertrophic cardiomyopathy; I10 Essential (primary) hypertension

== ENCOUNTER → 2025-01-26 09:10 | Outpatient (BNVA) | payer BC, SELFPAY | PROVIDERS: PCP Internal Medicine; Visit Provider Physician Assistant Medical | DX: I42.8 Other cardiomyopathies (principal); I10 Essential (primary) hypertension; I42.2 Other hypertrophic cardiomyopathy; D64.9 Anemia, unspecified; E86.0 Dehydration; R74.01 Elevation of levels of liver transaminase levels; E78.00 Pure hypercholesterolemia, unspecified; R79.89 Other specified abnormal findings of blood chemistry | CPT/HCPCS: 96127 ==